=== PATIENT | female | born 1965 | race Caucasian/White ===

== ENCOUNTER 2021-08-22 15:52 | Outpatient (REF) | payer OTHER, SELFPAY ==
--- NOTE | 2021-08-22 17:39 | PFT_ITS ---
Forced vital capacity is 80%, FEV1 85%. FEV1/FVC ratio 83. [id number] 96% and MVV is 99%. Post bronchodilator therapy, there is no change. Total lung capacity 85%. Residual volume 79%. Diffusion capacity 72%. Conclusion normal pulmonary function test. There is no evidence of obstructive or restrictive pulmonary disorder. MD WON Leblanc/JARED / [id number]
== END 2021-08-22 15:53 | disposition home or self-care (01) ==
LOC: HO.RESP 15:52
PROVIDERS: PCP Internal Medicine; Visit Provider Hospitalist
DX: J45.909 Unspecified asthma, uncomplicated (principal); R06.00 Dyspnea, unspecified
CPT/HCPCS: 94060; 94727; 94729

== ENCOUNTER → 2022-03-21 14:24 | Outpatient (BNVA) | payer OTHER, SELFPAY | PROVIDERS: PCP Internal Medicine; Visit Provider Hospitalist | DX: J45.20 Mild intermittent asthma, uncomplicated (principal) ==

== ENCOUNTER 2022-09-23 15:01 | Outpatient (AMB) | payer OTHER, SELFPAY ==
--- NOTE | 2022-09-23 15:21 | MHC.OFFVIS ---
Intake Vital Signs 09/23/22 15:22 Height 5 ft 7 in Weight 245 lb BMI 38.4 Pulse 86 Pulse Source Pulse Oximeter Pulse Oximetry (%) 98 Oxygen Delivery Method Room Air Intake Visit Reasons: Sleep Apnea Field Account Director Required: No Allergies Sulfa (Sulfonamide Antibiotics) Allergy (Severe, Verified 09/23/22 15:24) Swelling HPI HPI Comments History of Present Illness Details The patient is a 57-year-old woman with a known history of obstructive sleep apnea on CPAP therapy for many years. In addition to that she has a history of diabetes. Apparently she has been on CPAP therapy for and tolerating it very well. She uses it more than 4 hours a night. Typically uses a nasal mask. However, she still wakes up with significant daytime drowsiness. Sometimes she does fall asleep during business meetings or if she is on a red light. Her Chester score is elevated at 14 over 24. and she has had this issue now for many years. back in 2015 she did have an in-lab sleep study and CPAP and subsequently had multi latency sleep study subsequent to that. It appeared that her Pap therapy was affecting beneficial addressing her sleep apnea. Although, she still had evidence of hypersomnia once performing the MSLT. 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 The patient has not been treated for this condition. She continues to struggle with it. Therefore, I did suggest the patient consider starting new visual. She is concerned about any new medications because she is very sensitive to medications. But she can start the smallest dose possible to see if she does improve her overall Chester score And daytime drowsiness. the patient also carries a diagnosis of asthma. She has complained of intermittent shortness of breath. The patient does have a rescue inhaler available. Will plan to follow-up with pulmonary function studies. 09/23/2021 the patient is here for a pulmonary follow-up visit. Overall the patient is doing about the same. She is still waiting for the new CPAP. We did submit all the paperwork to the local [employer] company. Due to the back order is taking longer period time. In the meantime the CPAP therapy is affecting beneficial for the patient. She does try to use it more than 4 hours a night. She was given a prescription for new visual for persistent hypersomnia even with effective treatment with CPAP. However, the medication was also on back order she only got a recently. Now she is going to have surgery and therefore she is going to hold off to after she recovers from her surgery to start taking the medication. I do believe this is the right approach. We did review her pulmonary function studies. Appears to have a mild diffusion impairment but otherwise no obstructive nor restrictive ventilatory defects. 03/21/2022 The patient is here for a pulmonary follow up visit. She did take the Nuvigil and did improve her drowsiness, but caused her diarrhea and she stopped it. She now is recovering after having covid. Having a hard time sleeping. Has been having headaches and elevated BPs. Has been using her APAP. Her AHI is good, 1-2. Her pressures are good. The APAP therapy has been effective and beneficial. We will try to help her with her insomnia with the hopes that her HAs and BP improve. 09/23/2022 the patient is here for pulmonary follow-up visit. She has been sick now for several weeks with a upper respiratory illness that resulted in significant bronchitis and wheezing. She did go to urgent care. there, they sent her a prescription for budesonide which she start using along with Xopenex. She tolerated therapy well though she noticed some increased dyspepsia and also significant muscle spasms that was likely from the nebulized therapy. The patient did not require antibiotics. She did improve and over the weekend she is now back to her baseline. Her sister was also 6 suggesting that it was a lower respiratory infection likely viral syndrome. In regards of the CPAP the CPAP therapy continues to be affecting beneficial. She does use it for more than 4 hours a night. The patient was reported to have some snoring on the current settings. Therefore, I did increase the pressure some to see if that would improve her response to therapy. Although her AHI is down to 1 suggesting that even if she has some minimal snoring it is likely seldom. [facility] Medical History (Updated 03/23/22 @ 22:20 by Tariq Gilliland MD) Asthma Hypersomnia with sleep apnea JUSTICE on CPAP Social History (Updated 07/19/21 @ 15:45 by ALEJA Zepeda) Patient Tobacco Use Status: Never used Tobacco Review of Systems Const Reports daytime sleepiness, Reports difficulty sleeping and Reports headache(s) Eyes Denies change in vision ENT Reports headache(s) Card Denies chest pain Resp Reports cough GI Reports heartburn Musc Reports no additional complaints Skin/Breast Denies rash Neuro Reports headache(s) Physical Exam Vital Signs: Last Vital Signs Pulse 86 09/23/22 15:22 Pulse Ox 98 09/23/22 15:22 Oxygen Delivery Method Room Air 09/23/22 15:22 BMI result Body Mass Index 38.4 Const General: alert HEENT Head: Yes normal to inspection Neck Neck: Yes normal visual inspection and Yes full ROM Chest Chest palpation & inspection: normal inspection of the chest Resp Effort & Inspection: normal respiratory effort Auscultation: diminished lung sounds Cardio Rate: regular rate Rhythm: regular rhythm Heart sounds: S1 normal heart sound present and S2 normal heart sound present GI Inspection: Yes normal to inspection Skin General skin exam: no rashes or lesions noted Extrem General: Yes no clubbing, cyanosis or edema Assessment & Plan Assessment & Plan (1) JUSTICE on CPAP: Code(s): G47.33 - Obstructive sleep apnea (adult) (pediatric); Z99.89 - Dependence on other enabling machines and devices (2) Hypersomnia with sleep apnea: Code(s): G47.10 - Hypersomnia, unspecified; G47.30 - Sleep apnea, unspecified (3) Asthma: Code(s): J45.909 - Unspecified asthma, uncomplicated Qualifiers: Asthma complication type: uncomplicated Asthma persistence: intermittent Asthma severity: mild Qualified Code(s): J45.20 - Mild intermittent asthma, uncomplicated (4) Insomnia: Code(s): G47.00 - Insomnia, unspecified Plan Continue APAP. Nasal mask N20 medium provided. Xopenex via nebulizer as needed hold off on BUdesonide at this time potassium rich foods while using beta agonist continue KATHY as needed CXR Ambien as needed F/U 3-4 months Orders: Orders XR chest 2V Today J45.909 - Unspecified asthma, uncomplicated Medications: New levalbuterol HCl 1.25 mg (3 mL) inhalation BID 30 days PRN 180 mL 0RF shortness of breath or wheezing J44.9 - Chronic obstructive pulmonary disease, unspecified Coding Level of Care Code Est Pt Level 4 (38774) Diagnoses JUSTICE on CPAP G47.33; Z99.89 Hypersomnia with sleep apnea G47.10; G47.30 Asthma J45.20 Asthma complication type: uncomplicated Asthma persistence: intermittent Asthma severity: mild Insomnia G47.00 Time Spent (min) 18
[2022-09-23 15:22] VITALS: PULSE 86; O2SAT 98; BMI 38.4
== END 2022-09-23 15:49 | disposition home or self-care (01) ==
PROVIDERS: PCP Internal Medicine; Visit Provider Hospitalist
DX: G47.33 Obstructive sleep apnea (adult) (pediatric) (principal); Z99.89 Dependence on other enabling machines and devices; G47.10 Hypersomnia, unspecified; G47.30 Sleep apnea, unspecified; J45.20 Mild intermittent asthma, uncomplicated; G47.00 Insomnia, unspecified
CPT/HCPCS: 99214

== ENCOUNTER → 2022-09-23 15:01 | Outpatient (BNVA) | payer OTHER, SELFPAY | PROVIDERS: PCP Internal Medicine; Visit Provider Hospitalist | DX: J45.20 Mild intermittent asthma, uncomplicated (principal) ==

== ENCOUNTER 2023-05-19 15:34 | Outpatient (AMB) | payer OTHER, SELFPAY ==
--- NOTE | 2023-05-19 15:36 | MHC.OFFVIS ---
Intake Vital Signs 05/19/23 15:37 Height 5 ft 7 in Weight 248 lb BMI 38.8 Pulse 90 Pulse Source Pulse Oximeter Pulse Oximetry (%) 97 Oxygen Delivery Method Room Air Intake Visit Reasons: Sleep Apnea Board Certified Orthodontist Required: No Allergies Sulfa (Sulfonamide Antibiotics) Allergy (Severe, Verified 05/19/23 15:38) Swelling HPI HPI Comments History of Present Illness Details The patient is a 58-year-old woman with a known history of obstructive sleep apnea on CPAP therapy for many years. In addition to that she has a history of diabetes. Apparently she has been on CPAP therapy for and tolerating it very well. She uses it more than 4 hours a night. Typically uses a nasal mask. However, she still wakes up with significant daytime drowsiness. Sometimes she does fall asleep during business meetings or if she is on a red light. Her Richmond score is elevated at 14 over 24. and she has had this issue now for many years. back in 2015 she did have an in-lab sleep study and CPAP and subsequently had multi latency sleep study subsequent to that. It appeared that her Pap therapy was affecting beneficial addressing her sleep apnea. Although, she still had evidence of hypersomnia once performing the MSLT. 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 The patient has not been treated for this condition. She continues to struggle with it. Therefore, I did suggest the patient consider starting new visual. She is concerned about any new medications because she is very sensitive to medications. But she can start the smallest dose possible to see if she does improve her overall Richmond score And daytime drowsiness. the patient also carries a diagnosis of asthma. She has complained of intermittent shortness of breath. The patient does have a rescue inhaler available. Will plan to follow-up with pulmonary function studies. 09/23/2021 the patient is here for a pulmonary follow-up visit. Overall the patient is doing about the same. She is still waiting for the new CPAP. We did submit all the paperwork to the local [employer] company. Due to the back order is taking longer period time. In the meantime the CPAP therapy is affecting beneficial for the patient. She does try to use it more than 4 hours a night. She was given a prescription for new visual for persistent hypersomnia even with effective treatment with CPAP. However, the medication was also on back order she only got a recently. Now she is going to have surgery and therefore she is going to hold off to after she recovers from her surgery to start taking the medication. I do believe this is the right approach. We did review her pulmonary function studies. Appears to have a mild diffusion impairment but otherwise no obstructive nor restrictive ventilatory defects. 03/21/2022 The patient is here for a pulmonary follow up visit. She did take the Nuvigil and did improve her drowsiness, but caused her diarrhea and she stopped it. She now is recovering after having covid. Having a hard time sleeping. Has been having headaches and elevated BPs. Has been using her APAP. Her AHI is good, 1-2. Her pressures are good. The APAP therapy has been effective and beneficial. We will try to help her with her insomnia with the hopes that her HAs and BP improve. 09/23/2022 the patient is here for pulmonary follow-up visit. She has been sick now for several weeks with a upper respiratory illness that resulted in significant bronchitis and wheezing. She did go to urgent care. there, they sent her a prescription for budesonide which she start using along with Xopenex. She tolerated therapy well though she noticed some increased dyspepsia and also significant muscle spasms that was likely from the nebulized therapy. The patient did not require antibiotics. She did improve and over the weekend she is now back to her baseline. Her sister was also 6 suggesting that it was a lower respiratory infection likely viral syndrome. In regards of the CPAP the CPAP therapy continues to be affecting beneficial. She does use it for more than 4 hours a night. The patient was reported to have some snoring on the current settings. Therefore, I did increase the pressure some to see if that would improve her response to therapy. Although her AHI is down to 1 suggesting that even if she has some minimal snoring it is likely seldom. 05/19/2023 the patient is here for a pulmonary follow-up visit. Overall she is doing well. The CPAP therapy continues to be affecting beneficial. She does use it for more than 4 hours a night. Does use a nasal mask. No significant air leakage. Unfortunately, it appears that her current APAP is not downloading current data. She does not have the machine with her. I did call her [employer] to see if I can get access to her new machine. She states that she is snoring while using machine. This was documented by her family. Therefore, should be increasing her pressure some. In addition to that her asthma seems to be in control. She does have a rescue inhaler as needed. She has not had to use it which is reassuring. The patient was having some persistent daytime drowsiness even with adequate CPAP therapy. We did try putting her individual but she did not tolerated. It actually resulted in adverse symptoms and therefore she stopped it. She also tried sleep aids to see if she can have a better night's sleep but she did not tolerate the cedars. She is pretty sensitive to medications. However, she is willing to try some melatonin. I think to be a safe option for her. Hopefully we can provide her with a deeper sleep with better sleep hygiene and therefore hopefully feel better in the morning. [facility] Medical History (Updated 05/19/23 @ 22:42 by Tariq Gilliland MD) Hypersomnia with sleep apnea JUSTICE on CPAP Asthma Social History (Updated 07/19/21 @ 15:45 by ALEJA Zepeda) Patient Tobacco Use Status: Never used Tobacco Review of Systems Const Reports daytime sleepiness, Reports difficulty sleeping and Reports headache(s) Eyes Denies change in vision ENT Reports headache(s) Card Denies chest pain Resp Reports cough GI Reports heartburn Musc Reports no additional complaints Skin/Breast Denies rash Neuro Reports headache(s) Physical Exam Vital Signs: Last Vital Signs Pulse 90 05/19/23 15:37 Pulse Ox 97 05/19/23 15:37 Oxygen Delivery Method Room Air 05/19/23 15:37 BMI result Body Mass Index 38.8 Const General: alert HEENT Head: Yes normal to inspection Neck Neck: Yes normal visual inspection and Yes full ROM Chest Chest palpation & inspection: normal inspection of the chest Resp Effort & Inspection: normal respiratory effort Auscultation: diminished lung sounds Cardio Rate: regular rate Rhythm: regular rhythm Heart sounds: S1 normal heart sound present and S2 normal heart sound present GI Inspection: Yes normal to inspection Skin General skin exam: no rashes or lesions noted Extrem General: Yes no clubbing, cyanosis or edema Assessment & Plan Assessment & Plan (1) JUSTICE on CPAP: Code(s): G47.33 - Obstructive sleep apnea (adult) (pediatric); Z99.89 - Dependence on other enabling machines and devices (2) Hypersomnia with sleep apnea: Code(s): G47.10 - Hypersomnia, unspecified; G47.30 - Sleep apnea, unspecified (3) Asthma: Code(s): J45.909 - Unspecified asthma, uncomplicated Qualifiers: Asthma complication type: uncomplicated Asthma persistence: intermittent Asthma severity: mild Qualified Code(s): J45.20 - Mild intermittent asthma, uncomplicated (4) Insomnia: Code(s): G47.00 - Insomnia, unspecified Qualifiers: Insomnia type: primary Qualified Code(s): F51.01 - Primary insomnia Plan Continue APAP. Nasal mask N20 medium provided. [employer] access/download to adjust the APAP Xopenex via nebulizer as needed continue KATHY as needed Stop Ambien Start Melatonin PM F/U 12 months Medications: New melatonin 5 mg PO BEDTIME PRN 30 tabs 6RF sleep 30 days furosemide (Lasix) 20 mg PO DAILY 3 tabs 0RF 3 days Coding Level of Care Code Est Pt Level 4 (90400) Diagnoses JUSTICE on CPAP G47.33; Z99.89 Hypersomnia with sleep apnea G47.10; G47.30 Mild intermittent asthma without complication J45.20 Asthma complication type: uncomplicated Asthma persistence: intermittent Asthma severity: mild Primary insomnia F51.01 Insomnia type: primary Time Spent (min) 17
[2023-05-19 15:37] VITALS: PULSE 90; O2SAT 97; BMI 38.8
== END 2023-05-19 16:07 | disposition home or self-care (01) ==
PROVIDERS: PCP Internal Medicine; Visit Provider Hospitalist
DX: G47.33 Obstructive sleep apnea (adult) (pediatric) (principal); Z99.89 Dependence on other enabling machines and devices; G47.10 Hypersomnia, unspecified; G47.30 Sleep apnea, unspecified; J45.20 Mild intermittent asthma, uncomplicated; F51.01 Primary insomnia
CPT/HCPCS: 99214

== ENCOUNTER → 2023-05-19 15:34 | Outpatient (BNVA) | payer OTHER, SELFPAY | PROVIDERS: PCP Internal Medicine; Visit Provider Hospitalist | DX: J45.20 Mild intermittent asthma, uncomplicated (principal); J44.9 Chronic obstructive pulmonary disease, unspecified; J45.909 Unspecified asthma, uncomplicated ==

== ENCOUNTER 2024-06-03 10:11 | Outpatient (AMB) | payer OTHER, SELFPAY ==
[2024-06-03 10:13] VITALS: BP 134/76; PULSE 92; O2SAT 97; BMI 39.2
--- NOTE | 2024-06-03 10:13 | A.OFFVIS_ITS ---
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 In addition to that she has a history of diabetes. Apparently she has been on CPAP therapy for and tolerating it very well. She uses it more than 4 hours a night. Typically uses a nasal mask. However, she still wakes up with significant daytime drowsiness. Sometimes she does fall asleep during business meetings or if she is on a red light. Her Bellevue score is elevated at 14 over 24. and she has had this issue now for many years. back in 2015 she did have an in-lab sleep study and CPAP and john rivera had multi latency sleep study subsequent to that. It appeared that her Pap therapy was affecting beneficial addressing her sleep apnea. Although, she still had evidence of hypersomnia once performing the MSLT. 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 The patient has not been treated for this condition. She continues to struggle with it. Therefore, I did suggest the patient consider starting new visual. She is concerned about any new medications because she is very sensitive to medications. But she can start the smallest dose possible to see if she does improve her overall Bellevue score And daytime drowsiness. the patient also carries a diagnosis of asthma. She has complained of intermittent shortness of breath. The patient does have a rescue inhaler available. Will plan to follow- up with pulmonary function studies. 09/23/2021 the patient is here for a pulmonary follow-up visit. Overall the patient is doing about the same. She is still waiting for the new CPAP. We did submit all the paperwork to the local [employer] company. Due to the back order is taking longer period time. In the meantime the CPAP therapy is affecting beneficial for the patient. She does try to use it more than 4 hours a night. She was given a prescription for new visual for persistent hypersomnia even with effective treatment with CPAP. However, the medication was also on back order she only got a recently. Now she is going to have surgery and therefore s he is going to hold off to after she recovers from her surgery to start taking the medication. I do believe this is the right approach. We did review her pulmonary function studies. Appears to have a mild diffusion impairment but otherwise no obstructive nor restrictive ventilatory defects. 03/21/2022 The patient is here for a pulmonary follow up visit. She did take the Nuvigil and did improve her drowsiness, but caused her diarrhea and she stopped it. She now is recovering after having covid. Having a hard time sleeping. Has been having headaches and elevated BPs. Has been using her APAP. Her AHI is good, 1-2. Her pressures are good. The APAP therapy has been effective and beneficial. We will try to help her with her insomnia with the hopes that her HAs and BP improve. 09/23/2022 the patient is here for pulmonary follow-up visit. She has been sick now for several weeks with a upper respiratory illness that resulted in significant bronchitis and wheezing. She did go to urgent care. there, they sent her a prescription for budesonide which she start using along with Xopenex. She tolerated therapy well though she noticed some increased dyspepsia and also significant muscle spasms that was likely from the nebulized therapy. The patient did not require antibiotics. She did improve and over the weekend she is now back to her baseline. Her sister was also 6 suggesting that it was a lower respiratory infection likely viral syndrome. In regards of the CPAP the CPAP therapy continues to be affecting beneficial. She does use it for more than 4 hours a night. The patient was reported to have some snoring on the current settings. Therefore, I did increase the pressure some to see if that would improve her response to therapy. Although her AHI is down to 1 suggesting that even if she has some minimal snoring it is likely seldom. 05/19/2023 the patient is here for a pulmonary follow-up visit. Overall she is doing well. The CPAP therapy continues to be affecting beneficial. She does use it for more than 4 hours a night. Does use a nasal mask. No significant air leakage. Unfortunately, it appears that her current APAP is not downloading current data. She does not have the machine with her. I did call her [employer] company to see if I can get access to her new machine. She states that she is snoring while using machine. This was documented by her family. Therefore, should be increasing her pressure some. In addition to that her asthma seems to be in control. She does have a rescue inhaler as needed. She has not had to use it which is reassuring. The patient was having some persistent daytime drowsiness even with adequate CPAP therapy. We did try putting her individual but she did not tolerated. It actually resulted in adverse symptoms and therefore she stopped it. She also tried sleep aids to see if she can have a better night's sleep but she did not tolerate the cedars. She is pretty sensitive to medications. However, she is willing to try some melatonin. I think to be a safe option for her. Hopefully we can provide her with a deeper sleep with better sleep hygiene and therefore hopefully feel better in the morning. 06/03/2024 the patient is here for pulmonary follow-up visit. Overall she is doing well. She continues uses CPAP every night. CPAP therapy has been affecting beneficial. She does try to use it more than 4 hours a night. Her AHI is down to 1. Average pressures are around 11 cm. She does have issues with fragmented sleep. She wakes up multiple times. She also has a dry mouth. I did adjust the temperature bringing down her temperature from 80 F to 70 F and also the humidity from 3-4. She is going to monitor closely if she has any dry mouth that may be waking her up. She can also try some Biotene as the dentist recommended. The patient also can try sleep aid. Trazodone will be more effective for her to try to stay asleep. She can start with small dose of 25 mg and then workup to a therapeutic dose that does not cause any significant drowsiness during the daytime. From a respiratory status she is doing well. She has not had to use her rescue inhaler. [facility] Medical History (Updated 05/19/23 @ 22:42 by Tariq Gilliland MD) Hypersomnia with sleep apnea JUSTICE on CPAP Asthma Social History (Updated 06/03/24 @ 10:18 by Pippa Dexter CMA) Alcohol intake: former Patient Tobacco Use Status: Never used Tobacco Review of Systems Const Denies chills, Denies fatigue, Denies fever(s), Denies weight gain and Denies weight loss Eyes Denies change in vision ENT Denies dizziness Card Denies chest pain, Denies leg edema, Denies lightheadedness, Denies palpitations, Denies dyspnea on exertion, Denies orthopnea and Denies other Resp Denies cough and Denies dyspnea on exertion GI Denies hematochezia and Denies change in stool character Musc Denies abnormal gait, Denies muscle weakness, Denies numbness, Denies radiating pain into limb and Denies tingling Skin/Breast Denies rash Neuro Denies abnormal gait, Denies dizziness, Denies numbness and Denies tingling Endo Denies fatigue and Denies palpitations Physical Exam Vital Signs: Last Vital Signs Pulse 92 06/03/24 10:13 BP 134/76 06/03/24 10:13 Pulse Ox 97 06/03/24 10:13 Oxygen Delivery Method Room Air 06/03/24 10:13 BMI result Body Mass Index 39.2 Const General: alert HEENT Head: Yes normal to inspection Neck Neck: Yes normal visual inspection and Yes full ROM Chest Chest palpation & inspection: normal inspection of the chest Resp Effort & Inspection: normal respiratory effort Auscultation: diminished lung sounds Cardio Rate: regular rate Rhythm: regular rhythm Heart sounds: S1 normal heart sound present and S2 normal heart sound present GI Inspection: Yes normal to inspection Skin General skin exam: no rashes or lesions noted Extrem General: Yes no clubbing, cyanosis or edema Assessment & Plan Assessment & Plan (1) JUSTICE on CPAP: Code(s): G47.33 - Obstructive sleep apnea (adult) (pediatric); Z99.89 - Dependence on other enabling machines and devices Category: Medical (2) Hypersomnia with sleep apnea: Code(s): G47.10 - Hypersomnia, unspecified; G47.30 - Sleep apnea, unspecified Category: Medical (3) Asthma: Code(s): J45.909 - Unspecified asthma, uncomplicated Category: Medical Qualifiers: Asthma complication type: uncomplicated Asthma persistence: intermittent Asthma severity: mild Qualified Code(s): J45.20 - Mild intermittent asthma, uncomplicated (4) Insomnia: Code(s): G47.00 - Insomnia, unspecified Category: Medical Qualifiers: Insomnia type: primary Qualified Code(s): F51.01 - Primary insomnia Plan Continue APAP. Nasal mask N20 medium provided. Xopenex via nebulizer as needed continue KATHY as needed start Trazodone as needed F/U 12 months Medications: New trazodone 50 mg PO DAILY PRN 30 tabs 6RF insomnia 30 days Coding Level of Care Code Est Pt Level 4 (37318) Diagnoses JUSTICE on CPAP G47.33; Z99.89 Hypersomnia with sleep apnea G47.10; G47.30 Mild intermittent asthma without complication J45.20 Asthma complication type: uncomplicated Asthma persistence: intermittent Asthma severity: mild Primary insomnia F51.01 Insomnia type: primary Time Spent (min) 16
--- OUTSIDE RECORDS SUMMARY | 2024-06-03 10:37 | XMS_ITS | Clinical Summary ---
Author Organization [facility] Address [address] [place] [address] Care Team Providers Care Local Flatbed Driver Name Role Phone Cheikh Singh MD Primary Care Provider Social History Tobacco Use Types Packs/Day Years Used Date Smoking Tobacco: Never Assessed Comments Unknown Sex and Gender Information Value Date Recorded Sex Assigned at Not on file Legal Sex Female 9:22 PM EST Gender Identity Not on file Sexual Orientation Not on file Obstetrics History Plan of Treatment Health Maintenance Due Date Last Done Comments Breast Cancer Screening 1966 DTaP,Tdap,and Td Vaccines (1 - Tdap) 1985 Hepatitis B Vaccines (1 of 3 - 19+ 3-dose series) 1985 Cervical Cancer Screening: P ap Smear 1987 Pneumococcal Vaccine: 50+ Ye ars (1 of 1 - PCV) 2016 Zoster Vaccines (1 of 2) 2016 Colorectal Cancer Screening: Colonoscopy 01/11/2022 Depression Screening 01/11/2022 HIV Screening 01/11/2022 Hepatitis C Screening 01/11/2022 Social Influencers of Health Screening 01/11/2022 COVID-19 Vaccine (2023-2 5 season) 2023 Influenza Vaccine (Season Ended) 2024 HIB Vaccines Aged Out No longer eligi ble based on patient's age to complete this topic HPV Vaccines Aged Out No longer eligi ble based on patient's age to complete this topic Hepatitis A Vaccines Aged Out No long er eligible based on patient's age to complete this topic IPV Vaccines Aged Out No longer eligi ble based on patient's age to complete this topic MMR Vaccines Aged Out No longer eligi ble based on patient's age to complete this topic Meningococcal ACWY Vaccine Aged Out N o longer eligible based on patient's age to complete this topic Meningococcal B Vaccine Aged Out No l onger eligible based on patient's age to complete this topic Pneumococcal Vaccine: Pediat rics (0 to 5 Years) and At-Risk Patients (6 to 64 Years) Aged Out No longer eligible b ased on patient's age to complete this topic RSV Immunization Patients Un minda 20 months Aged Out No longer eligible b ased on patient's age to complete this topic Varicella Vaccines Aged Out No longer eligible based on patient's age to complete this topic Care Teams Local Flatbed Driver Relationship Specialty Start Date End Date Cheikh Singh MD [address] [place] [address] PCP - General Internal Medicine 12/26/16
--- OUTSIDE RECORDS SUMMARY | 2024-06-03 10:37 | XMS_ITS ---
[facility] Name [facility] History of Medication Use Medication Directions Dispensed Refills Start Date End Date Stat us betamethasone acetate-betamethason e sodium phosphate (CELESTONE) injection 12 mg 12 mg, Intra-articular, Once PRN Procedure, Starting on Thu12/04/23 at 1415, For 1 dose 12/04/2023 12/04/2023 completed predniSONE (DELTASONE) 20 MG tablet Take 2 tablets (40 mg total) by mouth daily. 12/26/2022 01/01/2023 active levothyroxine (SYNTHROID, LEVOTHROID) 137 MCG tablet Take 137 mcg by mouth daily. 12/08/2022 active Toujeo Max SoloStar 300 UNIT/ML CONCENTRATED prefilled pen injection INJECT 150 UNITS UNDER THE SKIN EVERY DAY 12/01/2022 active BD Pen Needle Kaleigh 2nd Gen 32G X 4 MM Misc USE 6 TIMES EVERY DAY DIRECTED 10/30/2022 active scopolamine (TRANSDERM-SCOP) patch APPLY 1 PATCH TOPICALLY TO THE SKIN EVERY 72 HOURS 10/30/2022 active nystatin 298488 UNIT/GM powder APPLY TOPICALLY THREE TIMES DAILY 09/26/2022 active ergocalciferol (VITAMIN D2,DRISDOL) 14948 units Cap Take 50,000 Units by mouth. active Problems Problem Status Onset Date Problem Type Date of Resolution Source Patellofemoral arthritis of right knee active [facility]osis[facility] Patellofemoral arthritis of left knee active EncounterDiagnosis[facility] Acute medial meniscus tear of left knee, initial encounter active EncounterDiagnosisAct [facility] Effusion of joint of left knee active 2023-10-20 ProblemAct [facility] Pain of left knee region active 2023-10-20 ProblemAct [facility] Arthritis of knee active 2023-09-29 ProblemAct [facility] Sprain of medial collateral ligament of right knee joint active 2023-09-[address] [facility] [address] Encounters Encounter Type Encounter Reason Primary Diagnosis Location Date Ambulatory Pain [facility] 12/04/2023 Ambulatory [facility] [place] 11/05/2023 Ambulatory [facility] [place] 10/21/2023 Ambulatory [facility] [place] 09/30/2023 Ambulatory [facility] [place] 09/29/2023 Ambulatory [facility] [place] 09/29/2023 Ambulatory [facility] [place] 09/29/2023 Ambulatory [facility] [place] 09/29/2023 Ambulatory [facility] [place] 09/29/2023 Ambulatory [facility] 12/30/2022 Ambulatory Bronchitis, not specified as acute or chronic Bronchitis, not specified as acute or chronic [facility] 12/30/2022 Ambulatory Bronchitis, not specified as acute or chronic Bronchitis, not specified as acute or chronic [facility] 12/26/2022 Care Team Organization Name Specialty Phone Email Start Date End Da te [facility] 03/01/2023 [facility] 12/30/20222022 [facility] Primary [facility] 12/26/20222024
--- OUTSIDE RECORDS SUMMARY | 2024-06-03 10:37 | XMS_ITS | Encounter Summary ---
Author Organization [facility] Address [address] [place] [address] Care Team Providers Care Air Launch Weapons Technician Name Role Phone Cheikh Singh MD Primary Care Provider [phone] Encounter Details Date Type Department Care Team (Late st Contact Info) Description 10/01/2021 Erroneous Encounter [facility] [address] [place] [id number] Provider, MD Elena Social History Tobacco Use Types Packs/Day Years Used Date Smoking Tobacco: Never Assessed Comments Unknown Sex and Gender Information Value Date Recorded Sex Assigned at Female 11/02/2023 7:52 PM EDT Legal Sex Female 7:00 PM EST Gender Identity Female 11/02/2023 7:52 PM EDT Sexual Orientation Not on file documented as of this encounter Plan of Treatment Not on file documented as of this encounter Visit Diagnoses Not on filedocumented in this encounter Care Teams Air Launch Weapons Technician Relationship Specialty Start Date End Date Cheikh Singh MD [address] [place] [address] PCP - General Internal Medicine 12/26/22 documented as of this encounter
--- OUTSIDE RECORDS SUMMARY | 2024-06-03 10:37 | XMS_ITS | Clinical Summary ---
Author Organization [facility] Address [address] [place] [address] Care Team Providers Care Vp Treasurer Name Role Phone Cheikh Singh MD Primary Care Provider [phone] Allergies Active Allergy Reactions Criticality Noted Date Comments Latex Other (See Comments) 12/26/2022 Sulfa Antibiotics Other (See Comments),Itching,Swelling Medium 12/26/2022 Medications ergocalciferol (VITAMIN D2,DRISDOL) 66575 units Cap Take 50,000 Units by mouth. Active ezetimibe (ZeTIA) 10 MG tablet TAKE 1 TABLET BY MOUTH DAILY IN THE am 3 Active Toujeo Max SoloStar 300 UNIT/ML CONCENTRATED prefilled pen injection INJECT 150 UNITS UNDER THE SKIN EVERY DAY 3 Active HumaLOG KwikPen 200 UNIT/ML CONCENTRATED prefilled pen injection INJECT 30-50 UNITS UNDER THE SKIN THREE TIMES DAILY WITH MEALS AND INJECT 15-20 UNITS WITH SNACKS 3 Active BD Pen Needle Kaleigh 2nd Gen 32G X 4 MM Misc USE 6 TIMES EVERY DAY DIRECTED 3 Active levothyroxine (SYNTHROID, LEVOTHROID) 137 MCG tablet Take 137 mcg by mouth daily. 3 Active losartan (COZAAR) 25 MG tablet Take 25 mg by mouth daily. 3 Active nortriptyline (PAMELOR) 25 MG capsule TAKE 1 CAPSULE BY MOUTH ONCE DAILY AT BEDTIME 3 Active nystatin 390865 UNIT/GM powder APPLY TOPICALLY THREE TIMES DAILY 3 Active OMEprazole (PriLOSEC) 40 MG capsule Take 40 mg by mouth 2 (two) times a day. 3 Active PANTETHINE ER PO Take by mouth. Active scopolamine (TRANSDERM-SCOP) patch APPLY 1 PATCH TOPICALLY TO THE SKIN EVERY 72 HOURS 3 Active metFORMIN (GLUCOPHAGE) 500 MG tablet Take 750 mg by mouth 2 (two) times a day with meals. Active proMETHAZINE-dex tromethorphan (proMETHAZINE-DM ) 6.25-15 MG/5ML syrupIndications :Bronchitis Take 5 mL by mouth every 4 (four) hours as needed for cough. 120 mL 3 Active benzonatate (TESSALON) 100 MG capsuleIndicatio ns:Bronchitis Take 2 capsules (200 mg total) by mouth 3 (three) times a day as needed for cough. 20 capsule 3 Active predniSONE (DELTASONE) 20 MG tabletIndication s:Bronchitis Take 2 tablets (40 mg total) by mouth daily. 10 tablet 3 Active albuterol (PROVENTIL) (0.083%) 2.5 mg/3 mL nebulizer solutionIndicati ons:Bronchitis Take 3 mL (2.5 mg total) by nebulization 4 times daily (every 6 hours) as needed for wheezing or shortness of breath. 75 mL 3 Active Active Problems No known active problems Social History Tobacco Use Types Packs/Day Years Used Date Smoking Tobacco: Never Assessed Comments Unknown Sex and Gender Information Value Date Recorded Sex Assigned at Female 11/02/2023 7:52 PM EDT Legal Sex Female 7:00 PM EST Gender Identity Female 11/02/2023 7:52 PM EDT Sexual Orientation Not on file Last Filed Vital Signs Vital Sign Reading Time Taken Comments Blood Pressure 136/80 12/30/2022 6:46 PM EST Pulse 82 12/30/2022 6:46 PM EST Temperature 36.3 ??C (97.3 ??F) 12/30/2022 6:46 PM ES T Respiratory Rate - - Oxygen Saturation 98% 12/30/2022 6:46 PM EST Inhaled Oxygen Concentration - - Weight - - Height - - Body Mass Index - - Plan of Treatment Health Maintenance Due Date Last Done Comments Hepatitis C Virus Screening 1966 HIV Screening 1979 DTaP/Tdap/Td Vaccines (1 - Tdap) 1985 Hepatitis B Vaccines (1 of 3 - 19+ 3-dose series) 1985 Pap Smear (Ages 21-65) 1987 Mammogram 2006 Colonoscopy 2011 Pneumococcal Vaccines 50+ (1 of 1 - PCV) 2016 Zoster (Shingles) Vaccine (1 of 2) 2016 Influenza Vaccine 09/10/2023 12/09/2021, , 12/29/2019, Additional history exists COVID-19 Vaccine (2023-2 5 season) 2023 10/26/2022, 05/10/2021, 12/21/2020, Additional history exists Insurance [facility] Care Teams Vp Treasurer Relationship Specialty Start Date End Date Cheikh Singh MD [address] [place] [id number] PCP - General Internal Medicine 12/26/22
--- OUTSIDE RECORDS SUMMARY | 2024-06-03 10:37 | XMS_ITS | Encounter Summary ---
Author Organization [facility] Address [address] [place] [address] Care Team Providers Care Rip/Mould Operator Name Role Phone Cheikh Singh MD Primary Care Provider [phone] Encounter Details Date Type Department Care Team ([facility] st Contact Info) Description 12/30/2022 7:02 PM EST Hospital Encounter [facility] [address] [place] [id number] Social History Tobacco Use Types Packs/Day Years [...] on file documented as of this encounter Procedures Procedure Name Priority Date/Time Associated Diagnosis Comments XR CHEST 2 VIEWS STAT 12/30/2022 7:07 PM EST Bronchitis documented in this encounter Results * XR Chest 2 views (12/30/2022 7:07 PM EST) Anatomical Region Laterality Modality Chest Computed Radiogr aphy 12/30/2022 7:09 PM EST Impressions 12/30/2022 7:10 PM EST Normal examination. Narrative 12/30/2022 7:10 PM EST PROCEDURE: XR CHEST 2 VIEWS INDICATION: Cough COMPARISON: None. TECHNIQUE: PA and lateral views of the chest. FINDINGS: Lines and Tubes: None. Heart and Mediastinum: The heart and mediastinal contours are unremarkable. Lungs and Pleura: The lungs are clear. ??There are no pleural effusions. Skeletal structures: The bony structures are unremarkable. Procedure Note Segundo Lennon MD - 12/30/2022 PROCEDURE: XR CHEST 2 VIEWS INDICATION: Cough COMPARISON: None. TECHNIQUE: PA and lateral views of the chest. FINDINGS: Lines and Tubes: None. Heart and Mediastinum: The heart and mediastinal contours areunremarkable. Lungs and Pleura: The lungs are clear. There are no pleural effusions. Skeletal structures: The bony structures are unremarkable. IMPRESSION: Normal examination. Mayank NUR IMG DIAGNOSTIC IMAGING ORDERAB LES Final Result documented in this encounter Visit Diagnoses Not on filedocumented in this encounter Care Teams Rip/Mould Operator Relationship Specialty Start Date End Date Cheikh Singh MD [address] [place] [address] PCP - General Internal Medicine 12/26/22 documented as of this encounter
--- OUTSIDE RECORDS SUMMARY | 2024-06-03 10:38 | XMS_ITS | Data Portability ---
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 - A1c not at goal. 03/30- Humalog was added (dinner only initially). 2020- Using breakfast and lunch. 04/02: toujeo 124. CGM shows highs post-lunch and (moreso) post-dinner extending overnight. 10/31: Doing better with over 75% of time in target range. MET and High dose 132 units toujeo with (90-100 units per day). 05/01: a1c better but CGM shows significant worsening of control. 12/01: a1c holding in mid 8s. Can't tolerate incretin. SGLT2i give UTI/yeast. NAFLD- based on LFTs. 12/01: not as high this now. HYPOTHYROID- generic replacement. 04/01: TSH up to 6.05 and dose just increased to 137. Has been on 150mcg in past with s/e. 2021: TSH at goal on 137. 2022: stable on 137. PULMONARY: - ASTHMA- on brief steroids 01/2018 - SLEEP APNEA but with daytime somnolence (9/22)- Talat added Nuvigil (low dose). GASTROINTESTINAL : - Reflux. Also GB surgery. Cardiac sx (2020): plasma catechols WNL. (+) Family stresses. (niece with psych issues, mom with depression, sister with similar health problems) CGM REPORT: DATES: 10/29/22-11/25/22 AVG GLU: 227 mg/DL Time in range: 27% Time high: 73% with 34% over 250 mg/DL. Time low: 0% GENERAL PATTERN: There are essentially no times when the average glucose is in the target range. There is great variability across the 24-hour period. The average at midnight is 250 and decreases to approximately 200 by 4 a.m. After rising briefly to 220 at 6 AM values decreased back towards 180-200 between 9 AM and noon. Values then increase back towards 230 mg/DL by 4-5 PM. Values decrease to approximately 220 at 6 PM and then rise fairly quickly to an average of approximately 280 from 10-11 PM before starting to decrease back towards 250 at midnight. INDIVIDUAL DAYS: Download gives significantly complete information regarding insulin doses and dietary choices. There is also a history of being on vacation for nearly 2 weeks of this 4 week interval. There are numerous instances of elevations in the evening. Many of the dietary choices are high in carbohydrates. The coverage doses of short-acting insulin are also elevated but frequently do not seem to result in significant lowering of glucose values after evening meals. As a result, glucose values are often quite high during the evening and remain elevated well past midnight. Of note, when values are in the target range by 11 PM, they typically remain in the range overnight. There are some additional instances of hypoglycemia beginning around noon time. IMPRESSION: Poor control of diabetes with only 27% of the time spent in the target range. Significant elevations in the evening arise from dietary choices. Fairly large amounts of insulin are used but do not seem to be fully correcting blood sugars. Overall, glucose values overnight are consistent with their values in the late evening. RECOMMENDATION: Emphasis on educating patient on choices for evening meals with an emphasis on calorie and carbohydrate reduction. Would still consider increasing short-acting for evening meals and snacks to better cover hyperglycemia. The goal should be to get values close to 180 by late evening since values remained fairly stable overnight. PRIOR CGM: 03/19/22-04/15/22 IMPRESSION: Poor control of diabetes with only 37% of the time in the target range. 63% of the time is spent in the elevated hyperglycemic range. Most of the increases in glucose value occur in the evening and extend overnight. RECOMMENDATION: Reviewed treatments for dinner time glycemic control. It may be worth reviewing timing of long-acting insulin or option of twice a day dosing. PREVIOUS CGM: 09/18/21-10/15/21 IMPRESSION: Excellent control of diabetes with over 75% of time spent in target zone. The few more severe hyperglycemic night time episodes tend to exaggerate the impact on average pattern. PRIOR CGM: DATES: 03/14/21- 04/10/21 IMPRESSION: Sub-optimal control of glucose values with 49% of time in range. Glucose values frequently go up after dinner and can remain high over night. Values can occasionally increase after lunch, but not as high and not as often. PREVIOUS CGM: DATES: 09/12-10/09/20 IMPRESSION: Very good overall control with nearly 80% of time spent in target range. Increases in evening about 1/3 of the time. Rare prolonged hypoglycemia overnight should be confirmed to make sure not a false positive. Enhanced Provider time spent performing enhanced activities which may include, but are not limited to: reviewing tests, obtaining and/or reviewing patient history; ordering medications, test or procedures; EMR documentation; communication with patient, family, caregiver(s), VNA; pre-visit prep time communication with specialists, ER staff. Time spent: 57 minutes 12/01 05/01: Increase dinner scale. Increase Toujeo 132 -> 150 units. Plan on dinner short-acting closer to 40-50 units. 12/01: Highs in evening often extend past [place]. Problem is poor choices in evening. Sl. fewer episodes around bkfst. [email or web address] Not available 11/28/2022 15:40:11 06/03/2023 06/03/2023 T2DM on Toujeo, Humalog and metformin and glipizide - unable to tolerate victoza, trulicity or ozempic. - A1c not at goal. 03/30- Humalog was added (dinner only initially). 2020- Using breakfast and lunch. 04/02: toujeo 124. CGM shows highs post-lunch and (moreso) post-dinner extending overnight. 9/22: Doing better with over 75% of time in target range. MET and High dose 132 units toujeo with (90-100 units per day). 05/01: a1c better but CGM shows significant worsening of control. 12/01: a1c holding in mid 8s. Can't tolerate incretin. SGLT2i give UTI/yeast. NAFLD- based on LFTs. 12/01: not as high this now. HYPOTHYROID- generic replacement. 04/01: TSH up to 6.05 and dose just increased to 137. Has been on 150mcg in past with s/e. 2021: TSH at goal on 137. 2022: stable on 137. PULMONARY: - ASTHMA- on brief steroids 01/2018 - SLEEP APNEA but with daytime somnolence (10/31)- Talat added Nuvigil (low dose). GASTROINTESTINAL : - Reflux. Also GB surgery. Cardiac sx (2020): plasma catechols WNL. (+) Family stresses. (niece with psych issues, mom with depression, sister with similar health problems) CGM REPORT: DATES: 05/06/23-06/02/23 AVG GLU: 212 mg/DL with coefficient of variation = 24.3%. CGM was active 97% of the time. Time in range: 30% Time high: 70% Time low: 0% GENERAL PATTERN: Average glucose value is above the target range for nearly the entire 24 hour interval. Values at 6 AM are approximately 200-220 and decrease to about 170 between 10 AM and 1 PM. After that, values increase consistently reaching a peak of approximately 250 by 9 p.m. Values continue to decrease for the rest of the evening and overnight and reach a value of approximately 200-210 between 3-4 AM before rising slowly back towards 210 upon waking. Overall, there is a fairly significant variability in the evening and overnight. INDIVIDUAL DAYS: Most days show increases in glucose beginning around noon time with more significant elevations occurring in the evening. Overnight intervals are sometimes quite high but other times in the target zone. High values in the later evening often predict persistent high values overnight. IMPRESSION: Poor control of diabetes with 30% of the time spent in the target range. There is a tendency for glucose values to increase in the afternoon but evening more of a tendency for them to increase in the later evening. RECOMMENDATION: Review prandial therapies for midday meals and dinner. Higher doses of short-acting insulin may be needed. PRIOR CGM: 10/29/22-11/25/22 IMPRESSION: Poor control of diabetes with only 27% of the time spent in the target range. Significant elevations in the evening arise from dietary choices. Fairly large amounts of insulin are used but do not seem to be fully correcting blood sugars. Overall, glucose values overnight are consistent with their values in the late evening. RECOMMENDATION: Emphasis on educating patient on choices for evening meals with an emphasis on calorie and carbohydrate reduction. Would still consider increasing short-acting for evening meals and snacks to better cover hyperglycemia. The goal should be to get values close to 180 by late evening since values remained fairly stable overnight. PRIOR CGM: 03/19/22-04/15/22 IMPRESSION: Poor control of diabetes with only 37% of the time in the target range. 63% of the time is spent in the elevated hyperglycemic range. Most of the increases in glucose value occur in the evening and extend overnight. RECOMMENDATION: Reviewed treatments for dinner time glycemic control. It may be worth reviewing timing of long-acting insulin or option of twice a day dosing. PREVIOUS CGM: 09/18/21-10/15/21 IMPRESSION: Excellent control of diabetes with over 75% of time spent in target zone. The few more severe hyperglycemic night time episodes tend to exaggerate the impact on average pattern. PRIOR CGM: DATES: 03/14/21- 04/10/21 IMPRESSION: Sub-optimal control of glucose values with 49% of time in range. Glucose values frequently go up after dinner and can remain high over night. Values can occasionally increase after lunch, but not as high and not as often. PREVIOUS CGM: DATES: 09/12-10/09/20 IMPRESSION: Very good overall control with nearly 80% of time spent in target range. Increases in evening about 1/3 of the time. Rare prolonged hypoglycemia overnight should be confirmed to make sure not a false positive. Enhanced Provider time spent performing enhanced activities which may include, but are not limited to: reviewing tests, obtaining and/or reviewing patient history; ordering medications, test or procedures; EMR documentation; communication with patient, family, caregiver(s), VNA; pre-visit prep time communication with specialists, ER staff. Time spent: 54 min (06/02) 05/01: Increase dinner scale. Increase Toujeo 132 -> 150 units. Plan on dinner short-acting closer to 40-50 units. 12/01: Highs in evening often extend past [place]. Problem is poor choices in evening. Sl. fewer episodes around bkfst. 06/02: generally over 200-250 units per day. (150 toujeo + humalog) - Switch to U-500 - Try rybelsus to see if that helps (couldn't tolerate injectables) Problem would be finding time with no food/drink +/- 30 min around pill. PLAN - less starch in PM - if BG over 250 in evening after a week, increase dinner scale by 5 units. - Try to see if can find time for lyn or Aracely to do virtual/video with pt. (see HPI). 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 can end by 3pm (T/W/Fri). / can do noon virtual or 3-4 PM. [email or web address] Not available 08/05/2023 11:18:33 01/20/2024 01/20/2024 T2DM on Toujeo, Humalog and metformin and glipizide - unable to tolerate victoza, trulicity or ozempic. - A1c not at goal. 03/30- Humalog was added (dinner only initially). 2020- Using breakfast and lunch. 04/02: toujeo 124. CGM shows highs post-lunch and (moreso) post-dinner extending overnight. 10/31: Doing better with over 75% of time in target range. MET and High dose 132 units toujeo with (90-100 units per day). 05/01: a1c better but CGM shows significant worsening of control. 12/01: a1c holding in mid 8s. Can't tolerate incretin. SGLT2i give UTI/yeast. 02/01: a1c worse. increase scale at dinner by 10 units. NAFLD- based on LFTs. 12/01: not as high this now. 02/01: stable. can't tolerate incretins. HYPOTHYROID- generic replacement. 04/01: TSH up to 6.05 and dose just increased to 137. Has been on 150mcg in past with s/e. 2021: TSH at goal on 137. 2022: stable on 137. 02/01: stable on 150 PULMONARY: - ASTHMA- on brief steroids 01/2018 - SLEEP APNEA but with daytime somnolence (10/31)- Talat added Nuvigil (low dose). GASTROINTESTINAL : - Reflux. Also GB surgery. 02/01: Bowels up/down. urgent pain starts mid-upper across abdomen and then radiates downwards. Cardiac sx (2020): plasma catechols WNL. (+) Family stresses. (niece with psych issues, mom with depression, sister with similar health problems) CGM REPORT: CGM download TIR= 21% ; HIGH= 77% LOWS= 0% Highs often in early evening. corrects with 20+ units at 11PM and often (but not always) comes down. - Add 10 units to supper scale. if HS BG high in 23 weeks, add another 5 units to supper scale. PRIOR : 05/06/23-06/02/23 IMPRESSION: Poor control of diabetes with 30% of the time spent in the target range. There is a tendency for glucose values to increase in the afternoon but evening more of a tendency for them to increase in the later evening. RECOMMENDATION: Review prandial therapies for midday meals and dinner. Higher doses of short-acting insulin may be needed. PRIOR CGM: 10/29/22-11/25/22 IMPRESSION: Poor control of diabetes with only 27% of the time spent in the target range. Significant elevations in the evening arise from dietary choices. Fairly large amounts of insulin are used but do not seem to be fully correcting blood sugars. Overall, glucose values overnight are consistent with their values in the late evening. RECOMMENDATION: Emphasis on educating patient on choices for evening meals with an emphasis on calorie and carbohydrate reduction. Would still consider increasing short-acting for evening meals and snacks to better cover hyperglycemia. The goal should be to get values close to 180 by late evening since values remained fairly stable overnight. PRIOR CGM: 03/19/22-04/15/22 IMPRESSION: Poor control of diabetes with only 37% of the time in the target range. 63% of the time is spent in the elevated hyperglycemic range. Most of the increases in glucose value occur in the evening and extend overnight. RECOMMENDATION: Reviewed treatments for dinner time glycemic control. It may be worth reviewing timing of long-acting insulin or option of twice a day dosing. PREVIOUS CGM: 09/18/21-10/15/21 IMPRESSION: Excellent control of diabetes with over 75% of time spent in target zone. The few more severe hyperglycemic night time episodes tend to exaggerate the impact on average pattern. PRIOR CGM: DATES: 03/14/21- 04/10/21 IMPRESSION: Sub-optimal control of glucose values with 49% of time in range. Glucose values frequently go up after dinner and can remain high over night. Values can occasionally increase after lunch, but not as high and not as often. PREVIOUS CGM: DATES: 09/12-10/09/20 IMPRESSION: Very good overall control with nearly 80% of time spent in target range. Increases in evening about 1/3 of the time. Rare prolonged hypoglycemia overnight should be confirmed to make sure not a false positive. Enhanced Provider time spent performing enhanced activities which may include, but are not limited to: reviewing tests, obtaining and/or reviewing patient history; ordering medications, test or procedures; EMR documentation; communication with patient, family, caregiver(s), VNA; pre-visit prep time communication with specialists, ER staff. Time spent: 56 min (02/01) 05/01: Increase dinner scale. Increase Toujeo 132 -> 150 units. Plan on dinner short-acting closer to 40-50 units. 12/01: Highs in evening often extend past [place]. Problem is poor choices in evening. Sl. fewer episodes around bkfst. 06/02: generally over 200-250 units per day. (150 toujeo + humalog) - Switch to U-500 - Try rybelsus to see if that helps (couldn't tolerate injectables) Problem would be finding time with no food/drink +/- 30 min around pill. PLAN - less starch in PM - if BG over 250 in evening after a week, increase dinner scale by 5 units. - Try to see if can find time for lyn or Aracely to do virtual/video with pt. (see HPI). 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 can end by 3pm (T/W/Fri). M/Th can do noon virtual or 3-4 PM. 02/01: - Add 10 units to supper scale. if HS BG high in 23 weeks, add another 5 units to supper scale. [email or web address] Not available 01/20/2024 19:02:43 Plan of Treatment Reminders Order Date Submit Date Provider Last Modified By Organization Details Last Modified Time Details Appointments Follow Up, 40 2024 04:20P M Travis Bright MD Not available Not available Not available Lab None recorded. Referral None recorded. Procedures None recorded. Surgeries None recorded. Imaging None recorded. Medication Orders metformin ER 750 mg tablet,ex tended release 24 hr 2023 024 [id number], [address], [place], [place], [id number], 01/20/2024 19:03:18 metformin ER 750 mg tablet,ex tended release 24 hr 2022 023 ROSIE Not available 11/28/2022 15:45:03 Patient TargetsNo targets recorded. Patient Instructions Encounter Date Encounter Id Patient Instructions Last Modified By Organization Details Last Modified Time 05/27/2022 [id number] - Take snack dos e of Humalog at the time of the snack, not after the snack. - Increase your dinnertime Humalog scale by 2 units. - Continue to log meals and Humalog doses as regularly as possible, as this helps greatly with pattern management. - Consider restarting physical activity as tolerated. - Please call or send a portal message with any other questions or concerns. [email or web address] Not available 05/27/2022 13:12:41 Follow up with diabetes education in August Patient agreed to this visit via secure telehealth platform. Patient understands this is a scheduled visit and the usual procedures with regard to billing and confidentiality apply. Patient was notified that the provider location is [facility] Patient location: home During the visit the patient? s medical history and medical record were reviewed. The patient was notified to call our office for worsening or urgent symptoms. [email or web address] Not available 05/27/2022 13:12:45 08/19/2022 [id number] - Increase both the breakfast/lunch Humalog scale and dinner Humalog scales by 4 units. - After 5 days of the increased Humalog, increase Toujeo to 160 units if fasting BG continue to consistently be over 150 mg/dl. - Please call or send a portal message with any other questions or concerns. [email or web address] Not available 08/19/2022 15:47:09 Follow up with diabetes education in October Patient agreed to this visit via secure telehealth platform. Patient understands this is a scheduled visit and the usual procedures with regard to billing and confidentiality apply. Patient was notified that the provider location is [facility] Patient location: home During the visit the patient? s medical history and medical record were reviewed. The patient was notified to call our office for worsening or urgent symptoms. [email or web address] Not available 08/19/2022 15:47:14 11/26/2022 [id number] - Increase Touje o- 150 units 12/01: GLUCOSE........... ..BKFST/LUNCH..... ..............DINN ER 120-150........... ........32........ .................. ............increa se 40 -> 45 151-200........... ........38........ .................. ............increa se 46-> 51 201-250........... ........42........ .................. ............increa se 50 -> 55 251-300........... ........46 .................. .................. ..increase 54-> 59 OVER.............. .................. .................. .................. .increase 56 -> 61 Continue to take short-acting for 10PM snack: PM snacks: 100-250:.......... .........19 units over 250:.............. .....24 units - Continue taking thyroid hormone every day away from other food and especially from other minerals like calcium (dairy), iron, magnesium, etc. - Contact office if any symptoms of low thyroid (excess fatigue, unexplained weight gain, feeling much more cold than usual, constipation, very dry skin) or excess thyroid (heart racing, unexplained weight loss, feeling jittery/nervous/an xious, change in frequency of moving bowels, tremors, or insomnia). [email or web address] Not available 11/28/2022 15:44:02 6+ months/ 60 minutes. Not available 11/25/2022 09:51:03 06/03/2023 [id number] - Increase Touje o- 150 units PREVIOUS SLIDING SCALE. GLUCOSE........... ..BKFST/LUNCH..... ..............DINN ER 120-150........... ........32........ .................. ............45 151-200........... ........38........ .................. ............51 201-250........... ........42........ .................. ............55 251-300........... ........46 .................. .................. .59 OVER.............. .................. .................. .................. 61 Continue to take short-acting for 10PM snack: PM snacks: 100-250:.......... .........19 units over 250:.............. .....24 units 06/02: If BG over 250 in evening after a week, increase dinner scale by 5 units. - Continue taking thyroid hormone every day away from other food and especially from other minerals like calcium (dairy), iron, magnesium, etc. - Contact office if any symptoms of low thyroid (excess fatigue, unexplained weight gain, feeling much more cold than usual, constipation, very dry skin) or excess thyroid (heart racing, unexplained weight loss, feeling jittery/nervous/an xious, change in frequency of moving bowels, tremors, or insomnia). [email or web address] Not available 08/05/2023 11:18:13 6+ months/ 60 minutes. Not available 06/02/2023 14:49:20 01/20/2024 [id number] - Increase Touje o- 150 units INCREASE SLIDING SCALE (02/01). GLUCOSE........... ..BKFST/LUNCH..... ..............DINN ER 120-150........... ........32........ .................. ............55 151-200........... ........38........ .................. ............61 201-250........... ........42........ .................. ............65 251-300........... ........46 .................. .................. .69 OVER.............. .................. .................. .................. 71 Continue to take short-acting for 10PM snack: PM snacks: 100-250:.......... .........19 units over 250:.............. .....24 units - Continue taking thyroid hormone every day away from other food and especially from other minerals like calcium (dairy), iron, magnesium, etc. - Contact office if any symptoms of low thyroid (excess fatigue, unexplained weight gain, feeling much more cold than usual, constipation, very dry skin) or excess thyroid (heart racing, unexplained weight loss, feeling jittery/nervous/an xious, change in frequency of moving bowels, tremors, or insomnia). [email or web address] Not available 01/20/2024 18:37:24 6+ months/ 60 minutes. (OK to book at end of day in [facility]- 4:40-4:45) [email or web address] Not available 01/20/2024 19:01:22 Reason for Referral None Reported. Results Created Date Observation Date Name Description Value Unit Range Abnormal Flag Note LastModifiedBy Organization Detail LastModifiedTime 08/24/19 23 08/23/2022 COMPR EHENS SHELLY METAB OLIC PANL glucose 183 mg/dL (70-99 ) high Not Available [facility] (Centralized Electronic Ordering - All Locations) Patient Can Go To The Location Of Their Choice, 08/23/2022 15:30:43 08/24/19 23 08/23/2022 COMPR EHENS SHELLY METAB OLIC PANL BUN 10 mg/dL (6-20) Not Available [facility] (Centralized Electronic Ordering - All Locations) Patient Can Go To The Location Of Their Choice, 08/23/2022 15:30:43 08/24/1908/23/2022 COMPR EHENS SHELYL METAB OLIC PANL creatinine 0.7 mg/dL (0.5-1 .0) Not Available [facility] (Centralized Electronic Ordering - All Locations) Patient Can Go To The Location Of Their Choice, 08/23/2022 15:30:43 08/24/1908/23/2022 COMPR EHENS SHELLY METAB OLIC PANL sodium 136 mmol/ L (133-1 45) Not Available [facility] (Centralized Electronic Ordering - All Locations) Patient Can Go To The Location Of Their Choice, 08/23/2022 15:30:43 08/24/1908/23/2022 COMPR EHENS SHELLY METAB OLIC PANL potassium 4.3 mmol/ L (3.6-5 .2) Not Available [facility] (Centralized Electronic Ordering - All Locations) Patient Can Go To The Location Of Their Choice, 08/23/2022 15:30:43 08/24/1908/23/2022 COMPR EHENS SHELLY METAB OLIC PANL chloride 101 mmol/ L (98-10 7) Not Available [facility] (Centralized Electronic Ordering - All Locations) Patient Can Go To The Location Of Their Choice, 08/23/2022 15:30:43 08/24/1908/23/2022 COMPR EHENS SHELLY METAB OLIC PANL bicarbonate 25 mmol/ L (22-29 ) Not Available [facility] (Centralized Electronic Ordering - All Locations) Patient Can Go To The Location Of Their Choice, 08/23/2022 15:30:43 08/24/1908/23/2022 COMPR EHENS SHELLY METAB OLIC PANL anion gap 10 (4-17) Not Available [facility] (Centralized Electronic Ordering - All Locations) Patient Can Go To The Location Of Their Choice, 08/23/2022 15:30:43 08/24/1908/23/2022 COMPR EHENS SHELLY METAB OLIC PANL albumin 4.4 gm/dL (3.4-4 .8) Not Available [facility] (Centralized Electronic Ordering - All Locations) Patient Can Go To The Location Of Their Choice, 08/23/2022 15:30:43 08/24/1908/23/2022 COMPR EHENS SHELLY METAB OLIC PANL calcium 9.5 mg/dL (8.6-1 0.5) Not Available [facility] (Centralized Electronic Ordering - All Locations) Patient Can Go To The Location Of Their Choice, 08/23/2022 15:30:43 08/24/1908/23/2022 COMPR EHENS SHELLY METAB OLIC PANL bilirubin,to kirt 0.3 mg/dL (0-1.2 ) Not Available [facility] (Centralized Electronic Ordering - All Locations) Patient Can Go To The Location Of Their Choice, 08/23/2022 15:30:43 08/24/1908/23/2022 COMPR EHENS SHELLY METAB OLIC PANL total protein 6.1 gm/dL (6.2-8 .2) low Not Available [facility] (Centralized Electronic Ordering - All Locations) Patient Can Go To The Location Of Their Choice, 08/23/2022 15:30:43 08/24/1908/23/2022 COMPR EHENS SHELLY METAB OLIC PANL Ag ratio 2.6 Not Available [facility] (Centralized Electronic Ordering - All Locations) Patient Can Go To The Location Of Their Choice, 08/23/2022 15:30:43 08/24/1908/23/2022 COMPR EHENS SHELLY METAB OLIC PANL AST 43 U/L (0-32) high Not Available [facility] (Centralized Electronic Ordering - All Locations) Patient Can Go To The Location Of Their Choice, 08/23/2022 15:30:43 08/24/1908/23/2022 COMPR EHENS SHELLY METAB OLIC PANL alk phos 71 U/L (35-10 4) Not Available [facility] (Centralized Electronic Ordering - All Locations) Patient Can Go To The Location Of Their Choice, 08/23/2022 15:30:43 08/24/1908/23/2022 COMPR EHENS SHELLY METAB OLIC PANL ALT 63 U/L (0-33) high Not Available [facility] (Centralized Electronic Ordering - All Locations) Patient Can Go To The Location Of Their Choice, 08/23/2022 15:30:43 08/24/1908/23/2022 COMPR EHENS SHELLY METAB OLIC PANL estimated GFR creatinine 102 mL/mi n/1.7 3_M2 Creat inine based estim ated glome rular filtr ation (eGFR ) in adult s is calcu lated using the Natio nal Kidne y Found ation recom kathy d 2020 CKD-E PI equat ion. Estim ates GFR from serum creat inine , age and sex. Not Available [facility] (Centralized Electronic Ordering - All Locations) Patient Can Go To The Location Of Their Choice, 08/23/2022 15:30:43 08/24/1908/23/2022 LIPID PANEL cholesterol, total 162 mg/dL (<200) Not Available [facility] ([facility]ized [facility] Ordering - All Locations) Patient Can Go To The Location Of Their Choice, 08/23/2022 15:30:45 08/24/1908/23/2022 LIPID PANEL triglyceride 120 mg/dL (<150) Not Available [facility] (Centralized Electronic Ordering - All Locations) Patient Can Go To The Location Of Their Choice, 08/23/2022 15:30:45 08/24/1908/23/2022 LIPID PANEL HDL chol 60 mg/dL (>39) Not Available [facility] (Centralized Electronic Ordering - All Locations) Patient Can Go To The Location Of Their Choice, 08/23/2022 15:30:45 08/24/1908/23/2022 LIPID PANEL LDL cholesterol, calculated 78 mg/dL (0-130 ) Not Available [facility] (Centralized Electronic Ordering - All Locations) Patient Can Go To The Location Of Their Choice, 08/23/2022 15:30:45 08/24/1908/23/2022 LIPID PANEL non HDL cholesterol (calc) 102 mg/dL (<160) Not Available [facility] (Centralized Electronic Ordering - All Locations) Patient Can Go To The Location Of Their Choice, 08/23/2022 15:30:45 08/24/1908/23/2022 FREE T4 free T4 1.25 NG/dL (0.70- 1.80) Not Available [facility] (Centralized Electronic Ordering - All Locations) Patient Can Go To The Location Of Their Choice, 08/23/2022 15:31:43 08/24/1908/23/2022 TSH TSH 2.14 uIU/m L (0.4-4 .2) Not Available [facility] (Centralized Electronic Ordering - All Locations) Patient Can Go To The Location Of Their Choice, 08/23/2022 15:31:45 08/24/1908/23/2022 URINA RY MICRO ALBUM IN micro-albumi n <12.0 mg/L (<20) The urine micro album in test is desig hilda to monit or renal funct ion. When scree sadie for Bence Mendez prote inuri a, urine elect ropho resis is recom kathy d. Not Available [facility] (Centralized Electronic Ordering - All Locations) Patient Can Go To The Location Of Their Choice, 08/23/2022 15:57:09 08/24/1908/23/2022 URINA RY MICRO ALBUM IN malb/creat ratio UNABLE TO CALCUL ATE mg/gm (0-20) Not Available [facility] (Centralized Electronic Ordering - All Locations) Patient Can Go To The Location Of Their Choice, 08/23/2022 15:57:09 08/24/1908/23/2022 URINA RY MICRO ALBUM IN urine creat for micro albumin 40.4 mg/dL Not Available [facility] (Centralized [facility] Ordering - All Locations) Patient Can Go To The Location Of Their Choice, 08/23/2022 15:57:09 08/24/1908/23/2022 HEMOG LOBIN A1C hemoglobin A1C 8.9 % (4.0-5 .6) high MONIT ORING : In known diabe tic patie nts, hemog lobin A1c targe ts shoul d be discu ssed with healt h care provi minda. DIAGN OSTIC USE: The Ameri can Diabe leonardo Assoc iatio n (ADA) and the World Healt h Organ izati on (WHO) recom mend the use of HbA1c to diagn ose diabe leonardo using a thres hold of 6.5%. Patie nts who have an HbA1c betwe en 5.7% and 6.4% are consi dered at incre ased risk for devel oping diabe leonardo in the futur eAlicja CAUTI ON: False ly low HbA1c resul ts may be obser gerard in patie nts with hemol ytic anemi a, homoz ygous forms of abnor mal hemog lobin (e.g. SS, CC, SC), pregn cydney, recen t blood loss or hemog lobin F great er than 7%. Fruct osami ne may be used as an alter iker test in these cases . REFER ENCE: ADA: [facility] [employer] [facility] al [facility] in Diabe leonardo 2019, The Journ al of Clini micheal and Appli ed Resea [facility] and Educa tion Volum e 43, Suppl ement 1 Not Available [facility] (Centralized Electronic Ordering - All Locations) Patient Can Go To The Location Of Their Choice, 08/23/2022 16:49:50 11/02/1911/01/2022 FREE T4 free T4 1.30 NG/dL (0.70- 1.80) Not Available [facility] (Centralized Electronic Ordering - All Locations) Patient Can Go To The Location Of Their Choice, 11/01/2022 15:16:40 11/02/1911/01/2022 TSH TSH 1.93 uIU/m L (0.4-4 .2) Not Available [facility] (Centralized Electronic Ordering - All Locations) Patient Can Go To The Location Of Their Choice, 11/01/2022 15:16:43 11/02/1911/01/2022 HEMOG LOBIN A1C hemoglobin A1C 8.4 % (4.0-5 .6) high MONIT ORING : In known diabe tic patie nts, hemog lobin A1c targe ts shoul d be discu ssed with healt h care provi minda. DIAGN OSTIC USE: The Ameri can Diabe leonardo Assoc iatio n (ADA) and the World Healt h Organ izati on (WHO) recom mend the use of HbA1c to diagn ose diabe leonardo using a thres hold of 6.5%. Patie nts who have an HbA1c betwe en 5.7% and 6.4% are consi dered at incre ased risk for devel oping diabe leonardo in the futur e. CAUTI ON: False ly low HbA1c resul ts may be obser gerard in patie nts with hemol ytic anemi a, homoz ygous forms of abnor mal hemog lobin (e.g. SS, CC, SC), pregn cydney, recen t blood loss or hemog lobin F great er than 7%. Fruct osami ne may be used as an alter iker test in these cases . REFER ENCE: ADA: [employer] Medic al Care in Diabe leonardo 2019, The Journ al of Clini micheal and Appli ed Resea rch and Educa tion Volum e 43, Suppl ement 1 Not Available [facility] (Centralized Electronic Ordering - All Locations) Patient Can Go To The Location Of Their Choice, [id number] 11/01/2022 15:56:15 05/23/19 24 05/26/2023 COMP. METAB OLIC PANEL (14) glucose 176 mg/dL 70-99 above high normal Not Available [facility] ([facility]) [address] [place], [address], 05/26/2023 20:06:24 05/23/19 24 05/26/2023 COMP. METAB OLIC PANEL (14) BUN 10 mg/dL 6-24 normal Not Available [facility] ([facility]) [address] [place], [address], 05/26/2023 20:06:24 05/23/19 24 05/26/2023 COMP. METAB OLIC PANEL (14) creatinine 0.61 mg/dL 0.57-1 .00 normal Not Available [facility] ([facility]) [address] [place], [address], 05/26/2023 20:06:24 05/23/19 24 05/26/2023 COMP. METAB OLIC PANEL (14) eGFR 104 mL/mi n/1.7 3 >59 Not Available [facility] ([facility]) [address], [place], [address], 05/26/2023 20:06:24 05/23/19 24 05/26/2023 COMP. METAB OLIC PANEL (14) BUN/creatini ne ratio 16 9-23 normal Not Available [facility] ([facility]) [address] [place], [place], [address], 05/26/2023 20:06:24 05/23/19 24 05/26/2023 COMP. METAB OLIC PANEL (14) sodium 139 mmol/ L 134-14 4 normal Not Available [facility] ([facility]) [address], [place], [address], 05/26/2023 20:06:24 05/23/19 24 05/26/2023 COMP. METAB OLIC PANEL (14) potassium 4.4 mmol/ L 3.5-5. 2 normal Not Available [facility] ([facility]) [address], [place], [address], 05/26/2023 20:06:24 05/23/19 24 05/26/2023 COMP. METAB OLIC PANEL (14) chloride 102 mmol/ L 96-106 normal Not Available [facility] ([facility]) [address], [place], [address], 05/26/2023 20:06:24 05/23/19 24 05/26/2023 COMP. METAB OLIC PANEL (14) carbon dioxide, total 20 mmol/ L 20-29 normal Not Available [facility] ([facility]) [address], [place], [address], 05/26/2023 20:06:24 05/23/19 24 05/26/2023 COMP. METAB OLIC PANEL (14) calcium 9.5 mg/dL 8.7-10 .2 normal Not Available [facility] ([facility]) [address] [place], [address], 05/26/2023 20:06:24 05/23/19 24 05/26/2023 COMP. METAB OLIC PANEL (14) protein, total 6.3 g/dL 6.0-8. 5 normal Not Available [facility] ([facility]) [address] [place], [address], 05/26/2023 20:06:24 05/23/19 24 05/26/2023 COMP. METAB OLIC PANEL (14) albumin 4.2 g/dL 3.8-4. 9 normal Not Available [facility] ([facility]) [address] [place], [address], 05/26/2023 20:06:24 05/23/19 24 05/26/2023 COMP. METAB OLIC PANEL (14) globulin, total 2.1 g/dL 1.5-4. 5 Not Available [facility] ([facility]) [address] [place], [address], 05/26/2023 20:06:24 05/23/19 24 05/26/2023 COMP. METAB OLIC PANEL (14) A/G ratio 2.0 1.2-2. 2 Not Available [facility] ([facility]) [address] [place], [address], 05/26/2023 20:06:24 05/23/19 24 05/26/2023 COMP. METAB OLIC PANEL (14) bilirubin, total 0.3 mg/dL 0.0-1. 2 normal Not Available [facility] ([facility]) [address] [place], [address], 05/26/2023 20:06:24 05/23/19 24 05/26/2023 COMP. METAB OLIC PANEL (14) alkaline phosphatase 81 IU/L 44-121 normal Not Available [facility] ([facility]) [address] [place], [address], 05/26/2023 20:06:24 05/23/19 24 05/26/2023 COMP. METAB OLIC PANEL (14) AST (SGOT) 46 IU/L 0-40 above high normal Not Available [facility] ([facility]) [address] [place], [address], 05/26/2023 20:06:24 05/23/19 24 05/26/2023 COMP. METAB OLIC PANEL (14) ALT (SGPT) 42 IU/L 0-32 above high normal Not Available [facility] ([facility]) [address] [place], [address], 05/26/2023 20:06:24 05/23/19 24 05/26/2023 LIPID PANEL cholesterol, total 163 mg/dL 100-19 9 normal Not Available [facility] ([facility]) [address] [place], [address], 05/26/2023 20:06:25 05/23/19 24 05/26/2023 LIPID PANEL triglyceride s 130 mg/dL 0-149 normal Not Available [facility] ([facility]) [address] [place], [address], 05/26/2023 20:06:25 05/23/19 24 05/26/2023 LIPID PANEL HDL cholesterol 58 mg/dL >39 normal Not Available [facility] ([facility]) [address] [place], [address], 05/26/2023 20:06:25 05/23/19 24 05/26/2023 LIPID PANEL VLDL cholesterol micheal 23 mg/dL 5-40 Not Available [facility] ([facility]) [address] [place], [address], 05/26/2023 20:06:25 05/23/19 24 05/26/2023 LIPID PANEL LDL chol calc ([facility]) 82 mg/dL 0-99 Not Available [facility] ([facility]) [address] [facility], [place], [address], 05/26/2023 20:06:25 05/23/19 24 05/26/2023 LIPID PANEL comment: SIGNAL CIRCUIT DESIGNER Not Available [facility] ([facility]) [address] [facility], [place], [address], 05/26/2023 20:06:25 05/23/19 24 05/26/2023 ALBUM IN/CR EATIN INE RATIO ,URIN E creatinine, urine 31.7 mg/dL not estab. normal Not Available [facility] ([facility]) [address] [place], [address], 05/26/2023 20:06:26 05/23/19 24 05/26/2023 ALBUM IN/CR EATIN INE RATIO ,URIN E albumin, urine 3.0 ug/mL not estab. Not Available [facility] ([facility]) [address] [facility], [place], [address], 05/26/2023 20:06:26 05/23/19 24 05/26/2023 ALBUM IN/CR EATIN INE RATIO ,URIN E alb/creat ratio 9 mg/g_ creat 0-29 Dorys l: 0 - 29 Moder ately incre ased: 30 - 300 Sever adrian incre ased: >300 Not Available [facility] ([facility]) [address] [place], [address], 05/26/2023 20:06:26 05/23/19 24 05/30/2023 HEMOG LOBIN A1C hemoglobin A1C COMMEN T % [facility] was unabl e to colle ct suffi cient speci men to perfo rm the follo wing test( s), and is provi ding the patie nt with re-co llect ion instr uctio ns. [facility] will conta ct your patie nt to sched ule a time for recol lecti on. James lopez we be unabl e to make conta ct with your patie nt, your offic e will be notif ied. Predi abete s: 5.7 - 6.4 Diabe leonardo: >6.4 Glyce jose contr ol for adult s with diabe leonardo: <7.0 Not Available [facility] ([facility]) [address] [place], [address], 05/30/2023 14:08:19 05/23/19 24 05/26/2023 TSH TSH 3.340 uIU/m L 0.450- 4.500 normal Not Available [facility] ([facility]) [address] [place], [address], 05/30/2023 14:08:21 05/23/19 24 05/26/2023 THYRO XINE (T4) thyroxine (T4) 8.3 ug/dL 4.5-12 .0 normal Not Available [facility] ([facility]) [address] [place], [address], 05/30/2023 14:08:21 10/23/19 24 10/24/2023 HEMOG LOBIN A1C hemoglobin A1C 10.2 % 4.8-5. 6 above high normal Predi abete s: 5.7 - 6.4 Diabe leonardo: >6.4 Glyce jose contr ol for adult s with diabe leonardo: <7.0 Not Available [facility] ([facility]) [address] [place], [address], 10/24/2023 06:09:39 10/23/19 24 10/24/2023 TSH TSH 4.920 uIU/m L 0.450- 4.500 above high normal Not Available [facility] ([facility]) [address] [place], [address], 10/24/2023 06:09:40 10/23/19 24 10/24/2023 THYRO XINE (T4) thyroxine (T4) 8.1 ug/dL 4.5-12 .0 normal Not Available [facility] ([facility]) [address] [facility], [place], [address], 10/24/2023 06:09:40 01/16/20 24 01/20/2024 COMP. METAB OLIC PANEL (14) glucose TNP mg/dL [facility] was unabl e to colle ct suffi cient speci men to perfo rm the follo wing test( s), and is provi ding the patie nt with re-co llect ion instr uctio ns. Not Available [facility] ([facility]) [address] [facility], [place], [address], 01/20/2024 16:06:42 01/16/20 24 01/20/2024 COMP. METAB OLIC PANEL (14) BUN TNP Test not perfo rmed Not Available [facility] ([facility]) [address] [facility], [place], [address], 01/20/2024 16:06:42 01/16/20 24 01/20/2024 COMP. METAB OLIC PANEL (14) creatinine TNP Test not perfo rmed Not Available [facility] ([facility]) [address] [facility], [place], [address], 01/20/2024 16:06:42 01/16/20 24 01/20/2024 COMP. METAB OLIC PANEL (14) eGFR SIGNAL CIRCUIT DESIGNER Not Available [facility] ([facility]) [address] [facility], [place], [address], 01/20/2024 16:06:42 01/16/20 24 01/20/2024 COMP. METAB OLIC PANEL (14) BUN/creatini ne ratio SIGNAL CIRCUIT DESIGNER Not Available [facility] ([facility]) [address] [facility], [place], [address], 01/20/2024 16:06:42 01/16/20 24 01/20/2024 COMP. METAB OLIC PANEL (14) sodium TNP Test not perfo rmed Not Available [facility] ([facility]) [address], [place], [address], 01/20/2024 16:06:42 01/16/20 24 01/20/2024 COMP. METAB OLIC PANEL (14) potassium TNP Test not perfo rmed Not Available [facility] ([facility]) [address], [place], [address], 01/20/2024 16:06:42 01/16/20 24 01/20/2024 COMP. METAB OLIC PANEL (14) chloride TNP Test not perfo rmed Not Available [facility] ([facility]) [address], [place], [address], 01/20/2024 16:06:42 01/16/20 24 01/20/2024 COMP. METAB OLIC PANEL (14) carbon dioxide, total TNP Test not perfo rmed Not Available [facility] ([facility]) [address], [place], [address], 01/20/2024 16:06:42 01/16/20 24 01/20/2024 COMP. METAB OLIC PANEL (14) calcium TNP Test not perfo rmed Not Available [facility] ([facility]) [address], [place], [address], 01/20/2024 16:06:42 01/16/20 24 01/20/2024 COMP. METAB OLIC PANEL (14) protein, total TNP Test not perfo rmed Not Available [facility] ([facility]) [address], [place], [address], 01/20/2024 16:06:42 01/16/20 24 01/20/2024 COMP. METAB OLIC PANEL (14) albumin TNP Test not perfo rmed Not Available [facility] ([facility]) [address], [place], [address], 01/20/2024 16:06:42 01/16/20 24 01/20/2024 COMP. METAB OLIC PANEL (14) globulin, total SIGNAL CIRCUIT DESIGNER Not Available [facility] ([facility]) [address], [place], [address], 01/20/2024 16:06:42 01/16/20 24 01/20/2024 COMP. METAB OLIC PANEL (14) A/G ratio SIGNAL CIRCUIT DESIGNER Not Available [facility] ([facility]) [address], [place], [address], 01/20/2024 16:06:42 01/16/20 24 01/20/2024 COMP. METAB OLIC PANEL (14) bilirubin, total TNP Test not perfo rmed Not Available [facility] ([facility]) [address], [place], [address], 01/20/2024 16:06:42 01/16/20 24 01/20/2024 COMP. METAB OLIC PANEL (14) alkaline phosphatase TNP Test not perfo rmed Not Available [facility] ([facility]) [address], [place], [address], 01/20/2024 16:06:42 01/16/20 24 01/20/2024 COMP. METAB OLIC PANEL (14) AST (SGOT) TNP Test not perfo rmed Not Available [facility] ([facility]) [address] [facility], [place], [address], 01/20/2024 16:06:42 01/16/20 24 01/20/2024 COMP. METAB OLIC PANEL (14) ALT (SGPT) TNP Test not perfo rmed Not Available [facility] ([facility]) [address], [place], [address], 01/20/2024 16:06:42 01/16/20 24 01/20/2024 LIPID PANEL cholesterol, total TNP mg/dL [facility] was unabl e to colle ct suffi cient speci men to perfo rm the follo wing test( s), and is provi ding the patie nt with re-co llect ion instr uctio ns. Not Available [facility] ([facility]) [address] [facility], [place], [address], 01/20/2024 16:06:44 01/16/20 24 01/20/2024 LIPID PANEL triglyceride s TNP Test not perfo rmed Not Available [facility] ([facility]) [address] [facility], [place], [address], 01/20/2024 16:06:44 01/16/20 24 01/20/2024 LIPID PANEL HDL cholesterol TNP Test not perfo rmed Not Available [facility] ([facility]) [address] [facility], [place], [address], 01/20/2024 16:06:44 01/16/20 24 01/20/2024 LIPID PANEL VLDL cholesterol micheal COMMEN T mg/dL Unabl e to calcu late resul t since non-n umeri c resul t obtai hilda for compo nent test. Not Available [facility] ([facility]) [address] [facility], [place], [address], 01/20/2024 16:06:44 01/16/20 24 01/20/2024 LIPID PANEL LDL chol calc ([facility]) SIGNAL CIRCUIT DESIGNER Not Available [facility] ([facility]) [address] [facility], [place], [address], 01/20/2024 16:06:44 01/16/20 24 01/20/2024 LIPID PANEL LDL calc comment: SIGNAL CIRCUIT DESIGNER Not Available [facility] ([facility]) [address] [facility], [place], [address], 01/20/2024 16:06:44 01/16/20 24 01/20/2024 ALBUM IN/CR EATIN INE RATIO ,URIN E creatinine, urine COMMEN T mg/dL Test not perfo rmed. Patie nt was unabl e to provi de a self- colle cted speci men for the reque sted testi ng. The follo wing test( s) were not perfo rmed: Not Available [facility] ([facility]) [address] [place], [address], 01/20/2024 16:06:44 01/16/20 24 01/20/2024 ALBUM IN/CR EATIN INE RATIO ,URIN E albumin, urine TNP Test not perfo rmed Not Available [facility] ([facility]) [address] [place], [address], 01/20/2024 16:06:44 01/16/20 24 01/20/2024 ALBUM IN/CR EATIN INE RATIO ,URIN E alb/creat ratio SIGNAL CIRCUIT DESIGNER Not Available [facility] ([facility]) [address] [place], [address], 01/20/2024 16:06:44 01/16/20 24 01/20/2024 HEMOG LOBIN A1C hemoglobin A1C TNP % [facility] was unabl e to colle ct suffi cient speci men to perfo rm the follo wing test( s), and is provi ding the patie nt with re-co llect ion instr uctio ns. Predi abete s: 5.7 - 6.4 Diabe leonardo: >6.4 Glyce jose contr ol for adult s with diabe leonardo: <7.0 Not Available [facility] ([facility]) [address] [place], [address], 01/20/2024 16:06:45 01/16/20 24 01/20/2024 THYRO XINE (T4) FREE, DIREC T T4,free(dire ct) TNP NG/dL [facility] was unabl e to colle ct suffi cient speci men to perfo rm the follo wing test( s), and is provi ding the patie nt with re-co llect ion instr uctio ns. Not Available [facility] ([facility]) [address] [place], [address], 01/20/2024 16:06:46 01/16/20 24 01/20/2024 TSH TSH TNP uIU/m L [facility] was unabl e to colle ct suffi cient speci men to perfo rm the follo wing test( s), and is provi ding the patie nt with re-co llect ion instr uctio ns. Not Available [facility] ([facility]) [address] [place], [address], 01/20/2024 16:06:46 01/16/20 24 01/20/[address] PROBL EM request problem TNP [facility] was unabl e to colle ct suffi cient speci men to perfo rm the follo wing test( s), and is provi ding the patie nt with re-co llect ion instr uctio ns. TEST: 91275 0 Comp. Metab olic Panel (14) 57259 6 Lipid Panel 36563 4 Thyro xine (T4) Free, Direc t 20620 9 TSH Not Available [facility] ([facility]) [address] [place], [address], 01/20/2024 16:06:47 01/16/20 24 01/20/[address] PROBL EM request problem COMMEN T Test not perfo rmed. Patie nt was unabl e to provi de a self- colle cted speci men for the reque sted testi ng. The follo wing test( s) were not perfo rmed: TEST: 33722 5 Album in/Cr eatin ine Ratio ,Urin e Not Available [facility] ([facility]) [address] [place], [address], 01/20/2024 16:06:47 01/16/20 24 01/20/[address] PROBL EM request problem TNP [facility] was unabl e to colle ct suffi cient speci men to perfo rm the follo wing test( s), and is provi ding the patie nt with re-co llect ion instr uctio ns. TEST: 22722 3 Hemog lobin A1c Not Available [facility] ([facility]) [address] [place], [address], 01/20/2024 16:06:48 01/18/20 24 01/19/2024 COMP. METAB OLIC PANEL (14) glucose 131 mg/dL 70-99 above high normal Not Available [facility] ([facility]) [address] [place], [address], 01/19/2024 20:06:24 01/18/20 24 01/19/2024 COMP. METAB OLIC PANEL (14) BUN 10 mg/dL 6-24 normal Not Available [facility] ([facility]) [address] [place], [address], 01/19/2024 20:06:24 01/18/20 24 01/19/2024 COMP. METAB OLIC PANEL (14) creatinine 0.76 mg/dL 0.57-1 .00 normal Not Available [facility] ([facility]) [address] [place], [address], 01/19/2024 20:06:24 01/18/20 24 01/19/2024 COMP. METAB OLIC PANEL (14) eGFR 91 mL/mi n/1.7 3 >59 normal Not Available [facility] ([facility]) [address] [place], [address], 01/19/2024 20:06:24 01/18/20 24 01/19/2024 COMP. METAB OLIC PANEL (14) BUN/creatini ne ratio 13 9-23 normal Not Available [facility] ([facility]) [address] [place], [address], 01/19/2024 20:06:24 01/18/20 24 01/19/2024 COMP. METAB OLIC PANEL (14) sodium 138 mmol/ L 134-14 4 normal Not Available [facility] ([facility]) [address] [facility] [place], [address], 01/19/2024 20:06:24 01/18/20 24 01/19/2024 COMP. METAB OLIC PANEL (14) potassium 4.0 mmol/ L 3.5-5. 2 normal Not Available [facility] ([facility]) [address] [facility] [place], [address], 01/19/2024 20:06:24 01/18/20 24 01/19/2024 COMP. METAB OLIC PANEL (14) chloride 99 mmol/ L 96-106 normal Not Available [facility] ([facility]) [address] [facility] [place], [address], 01/19/2024 20:06:24 01/18/20 24 01/19/2024 COMP. METAB OLIC PANEL (14) carbon dioxide, total 21 mmol/ L 20-29 normal Not Available [facility] ([facility]) [address] [facility] [place], [address], 01/19/2024 20:06:24 01/18/20 24 01/19/2024 COMP. METAB OLIC PANEL (14) calcium 9.6 mg/dL 8.7-10 .2 normal Not Available [facility] ([facility]) [address] [facility] [place], [address], 01/19/2024 20:06:24 01/18/20 24 01/19/2024 COMP. METAB OLIC PANEL (14) protein, total 6.4 g/dL 6.0-8. 5 normal Not Available [facility] ([facility]) [address] [facility] [place], [address], 01/19/2024 20:06:24 01/18/20 24 01/19/2024 COMP. METAB OLIC PANEL (14) albumin 4.5 g/dL 3.8-4. 9 normal Not Available [facility] ([facility]) [address] [facility] [place], [address], 01/19/2024 20:06:24 01/18/20 24 01/19/2024 COMP. METAB OLIC PANEL (14) globulin, total 1.9 g/dL 1.5-4. 5 Not Available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 diverticular bleed. Mom doing OK; getting botox for eyes. Mom got COVID too. Jos in same house. 10/31: Mom- back to vomiting/diarrhea. 05/01: No major changes. Jos and mom doing well. Medical History Condition Response Diabetes Type II Y Thyroid Disease Y Gynecological HistoryNo gynecological history recorded. Obstetrics History GPAL:G 0 P 0 0 0 0 Immunizations Vaccine Type Date Status Note Provider Nam e and Address Organization Details Recorded Time Influenza, split virus, quadrivalent, PF 6 completed Not Available [facility] 02/26/2019 02:27:41 Influenza, split virus, quadrivalent, PF 7 completed Not Available [facility] 02/26/2019 02:35:44 Influenza, split virus, quadrivalent, preservative 9 completed Not Available [facility] 03/16/2023 10:21:37 Influenza, split virus, quadrivalent, preservative 0 completed Not Available [facility] 03/16/2023 10:21:36 COVID-19, mRNA, LNP-S, PF, 100 mcg/0.5mL dose or 50 mcg/0.25mL dose 1 completed Not Available [facility] 03/16/2023 10:21:37 COVID-19, mRNA, LNP-S, PF, 100 mcg/0.5mL dose or 50 mcg/0.25mL dose 1 completed Not Available [facility] 03/16/2023 10:21:37 COVID-19, mRNA, LNP-S, PF, 100 mcg/0.5mL dose or 50 mcg/0.25mL dose 1 completed Not Available [facility] 03/16/2023 10:21:37 COVID-19, mRNA, LNP-S, PF, 100 mcg/0.5mL dose or 50 mcg/0.25mL dose 2 completed Not Available [facility] 03/16/2023 10:21:37 Past Encounters Encounter ID Performer Location Encounter Start Date Encounter Closed Date Diagnosis/Indication Diagnosis SNOMED-CT Code Diagnosis ICD10 Code Diagnosis Note [id number] [facility], [address] [address] 06/05/2010 16:33:18 06/06/2010 09:05:25 [id number] [facility], [address] [address] 03/05/2011 17:27:10 03/06/2011 08:50:03 [id number] Cailin Valencia LPN [facility], [address] [address] 08/20/2011 17:31:52 08/21/2011 07:11:55 [id number] Cailin Valencia LPN [facility], [address] [address] 03/12/2012 15:29:53 03/12/2012 17:52:39 [id number] Fazal Robles RN DM Education , [facility] [address] [place] [address] 08/04/2012 14:12:16 08/04/2012 15:47:38 [id number] Fazal Robles RN DM Education , [facility] [address] [place] [address] 08/26/2012 15:14:20 08/26/2012 16:32:41 [id number] Loraine Mota [facility], [address] [address] 10/06/2012 17:30:08 10/07/2012 09:19:04 Uncontrolled type 2 diabetes mellitus [id number] a1c still up over 9% with transition to insulin. right now on 20 lantus and still on glip 10 bid, metformin and Januvia. Keep AM Lantus at 20 (back from vacation, BG later in day are 100-180) but add dinner (doesn't matter pre or post for lantus) dose of 5 units to see if can bring AM values down from consistent ly being over 120. Mixed hyperlipidemia [id number] Has tried other statins with difficulty but was doing OK on low dose fluvastati n (20) until recently. Now back to having leg cramps. Lipid profile at goal. Encouraged her to try taking QOD to see if leg cramps are less. If able to tolerate and if lipids worsen on TIS, may consider increase to 40 mg dose TIS. LDL at goal on 20 qd. She is also using fish oil and flax seed to bring down. If she doesn't reach goal, might consider either zetia or welchol which should give myalgias. HDL surprising ly good at 46. Hypothyroidism 97187312 On 125 generic. TSH stable- Continue on 125 generic and check TFTs every 3 months. Obstructiv e sleep apnea syndrome 89246310 on CPAP and uses it. [id number] [facility], [facility] [address] [place] [address] 10/29/2012 15:59:01 10/29/2012 16:55:41 Uncontrolled type 2 diabetes mellitus [id number] -increase lantus to 20units in the am and 12units in the pm - continue metformin, glipizide 10mg 2x/d, januvia 100mg daily Mixed hyperlipidemia 276045532 Has tried other statins with difficulty but was doing OK on low dose fluvastati n (20) until recently. Now back to having leg cramps. Lipid profile at goal. Encouraged her to try taking QOD to see if leg cramps are less. If able to tolerate and if lipids worsen on TIS, may consider increase to 40 mg dose TIS. LDL at goal on 20 daily of fluvastati n. She is also using fish oil and flax seed to bring down. If she doesn't reach goal, might consider either zetia or welchol which should give myalgias. HDL surprising ly good at 46. Hypothyroidism [id number] On levothyrox ine 125 generic. TSH stable at 0.95 Obstructiv e sleep apnea syndrome 52519977 on CPAP and uses it. Vitamin D deficiency 95329441 -vitamin d 1000units daily Essential hypertension 55967741 -lisinopri l 10mg daily [id number] Jillian Garcia [facility], [facility] [address] [place] [address] 12/31/2012 15:59:37 12/31/2012 17:32:48 Uncontrolled type 2 diabetes mellitus 285140142 -increase lantus to 36units subcut once daily - continue metformin 750mg 2x/d, glipizide 5mg 2x/d, januvia 100mg daily Mixed hyperlipidemia 648167118 -continue fluvastati n Hypothyroidism 81112078 -levothyro xine 125mcg daily Obstructiv e sleep apnea syndrome 10682109 on CPAP and uses it. Vitamin D deficiency 01033944 -vitamin d 1000units daily Essential hypertension 95101623 -lisinopri l 5mg daily [id number] Cailin Valencia LPN [facility], [facility] [address] [place] [address] 03/01/2013 16:55:27 03/02/2013 09:05:03 Uncontrolled type 2 diabetes mellitus [id number] a1c still up over 9% with transition to insulin. Right now on 38 lantus and glipizide (5mg down from 10 bid), metformin (750 bid ) and Januvia. Keep AM Lantus at 38 but may need to go up higher- wrote Rx for 45-50. Try PM glipizide 10 mg to see if can get AM values to goal. Continue metformin and Januvia. Consider change Januvia for Incretin option to promote weight loss. Hypoglycem ia becoming a more significan t issue- sx come on rapidly without much warning. Rx for glucagon pen. Hypothyroidism [id number] On 125 generic. TSH stable- Continue on 125 generic and check TFTs every 3 months. Mixed hyperlipidemia [id number] Has tried other statins with difficulty but was doing OK on low dose fluvastati n (20). Tolerating current dose. Lipid profile at goal. LDL at goal on 20 qd. She is also using fish oil and flax seed to bring down. Given recent evidence, she does not have to continue fish oil. For now, flax seed may be helful. If she doesn't reach goal, might consider either zetia or welchol which should give myalgias. HDL has gone up likely due to her great efforts at exercise. Now at 52. Obstructiv e sleep apnea syndrome 58401223 on CPAP and uses it. Essential hypertension 98074757 on small dose of lisinopril . (5) [id number] [facility], [address] [address] 05/25/2013 16:59:52 05/27/2013 09:43:31 Hypothyroidism 91835292 On 125 generic. TSH stable- Continue on 125 generic and follow TFTs. Uncontroll ed type 2 diabetes mellitus 708323426 a1c still better at 7.5% from 7.9% and was up over 9%. Right now on 38 lantus and glipizide (10mg at HS down from 10 bid), metformin (750 bid ) and Januvia. Keep AM Lantus at 38-40 but may need to go up higher in the future (wrote Rx for 45-50). If exercises in PM and starts having lows during the night, decrease PM glipizide from 10 mg to 5 mg - can even go off HS glipizide if still has lows overnight. If AM values remain over 140 even with exercise, may need to try increasing lantus or switch from glipizide to small dose of PM lantus. Continue metformin and Januvia. Consider change Januvia for Incretin option to promote weight loss. Hypoglycem ia becoming a more significan t issue- sx come on rapidly without much warning. Gave her Rx for glucagon pen last time but pt. says never came from [facility]. Mixed hyperlipidemia [id number] Pretty clear that she can't tolerate statins but LDL is not at goal- 115. Has tried other statins with difficulty but was doing OK on low dose fluvastati n (20). Was tolerating until recently- less myalgias after stopping it. Lipid profile not at goal. LDL not at goal. If she doesn't reach goal, might consider either zetia or welchol which should give myalgias. HDL had previously gone up (likely due to her great efforts at exercise). Still in 50's. Obstructiv e sleep apnea syndrome 65408750 on CPAP and uses it. Essential hypertension 08290749 PCP stopped ERIC-I because of low BP (originall y started for high BP). BP is back up now- repeat by me = 144/92 with normal cuff but 138/88 with large cuff (both on left arm). She is hoping to start back to exercise so might be worth following. If persists, could consider either 12.5 of HCTZ or 2.5 mg lisinopril (was on 5 mg in past). [id number] Airam Angulo [facility], [address] [address] 12/21/2013 16:56:21 04/20/2014 09:58:36 Uncontrolled type 2 diabetes mellitus 593281549 a1c about the same (7.6 and was 7.5) - has been on steroids since then (only 5 days). Asking about possible contributi on of meds to being hungry 2-3 hours after dinner (and exercise). Usually expect more from short acting insulin but glipizide might contribute . Also asking about changing over to all insulin. Could certainly do that. Seeing Liyah Garcia- raising question of weight gain with insulin and OKEEFE. Discussed options of switching to all insulin regimen. 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 She will contact [facility] about cost of byetta vs. victoza. If able to start either of those, will look to stop Januvia and hopefully decrease glipizide. Hypothyroidism 75733055 on 125 of generic T4. TFTs OK in 10/2013. Obstructiv e sleep apnea syndrome 42905634 on CPAP and uses it. Essential hypertension 25435372 PCP stopped ERIC-I because of low BP (originall y started for high BP). BP is back up here today but she reports normal values at other offices. Encourage close f/u- she has access to one - encourage her to check BP at home a few times. If persists, could consider either 12.5 of HCTZ or 2.5 mg lisinopril (was on 5 mg in past). [id number] Cailin Valencia LPN [facility], [address] [address] 04/19/2014 16:56:16 04/20/2014 10:16:08 Uncontrolled type 2 diabetes mellitus [id number] 04/2014: On Lantus 40, glipizide and metformin and victoza 1.2. However also on prednisone (3 courses of five days over past few months- around 40 and tapering) See scanned record of recent sugars. A1c continues to go up- now at 7.9% but hard to say how much is from ongoing steroid contributi on. Has gotten some benefit when uses glipizide and cinnamon at night (on AM sugars). And even has seen some lows in the AM. But generally has higher sugars at HS (presumabl y from impact of dinner). Increase victoza to 1.8. Hope to see sugars better towards HS. Still seeing Liyah Garcia. Thought taking insulin at night might be better. Discussed idea of not wanting lantus to wear off after 16-18 hours (would be pre-dinner ). Hypothyroidism 21239925 on 125 of generic T4. TFTs OK Monitor labs and respond prn. Prednisone adverse reaction [id number] Impacting blood sugars and doesn't seem to be helping pulmonary status (coughing and feeling of sinus infection) Obstructiv e sleep apnea syndrome 26112210 on CPAP and uses it. On examina tion - maxillary sinus tenderness [id number] Natalia Cuevas [facility], [address] [address] 09/06/2014 16:58:20 09/06/2014 17:59:53 Uncontrolled type 2 diabetes mellitus 676107811 On Lantus 40 AM, glipizide (10 mg HS) and metformin (750 bid) and victoza 1.8. low today but that was due to taking 5 mg glip in AM (woke up high and thought it would bring down). Discussed timing and duration of glipizide and problems taking extra pill. Labs pending from recent draw. Was at 7.9% but was on steroids at the time. Doing more walking and hope to see that having positive impact as well. Still seeing Liyah Garcia monthly. Hypothyroidism 59214831 on 125 of generic T4. TFTs OK Monitor labs and respond prn. Obstructiv e sleep apnea syndrome 98964795 on CPAP and uses it. Mixed hyperlipidemia 833755879 Pretty clear that she can't tolerate statins- LDL has not been at goal- 103 in 02/23. Has tried other statins with difficulty . Even tried low dose fluvastati n (20) but had myalgias again- less myalgias after stopping it. Filled Rx for Crestor from PCP- he suggested starting at just 5 mg one tablet per week. I suspect she may likely develop myalgias again on Crestor but OK to try. In meanwhile, stay on plant sterol preparatio n (CholestOf f). If she doesn't reach goal, would consider either zetia or welchol which should not give myalgias. HDL had previously been down (28 in 02/2014)- may be better with recent walking efforts (had been up to 50's). [id number] Cailin Valencia LPN [facility], [address] [address] 03/07/2015 16:56:16 03/08/2015 09:34:05 Uncontrolled type 2 diabetes mellitus [id number] E11.65 On Lantus 45 AM, glipizide (10 mg HS) and metformin (750 bid) and victoza 1.8. a1c up to 8.3%. Would like to have her switch to Toujeo to see if more consistent and longer duration could help. Will give her 2 pens of Toujeo at 50 units per day. See if AM sugars improve. If they do, will send Rx. If Toujeo not covered or no change, may have her use up Lantus (just refilled) by splitting and giving 35-0-15-0. Not as active and eating out more- need to emphasize lifestyle efforts. Still seeing Liyah Jose monthly. Hypothyroidism 64576062 E03.9 on 125 of generic T4. TFTs OK Monitor labs and respond prn. Active or passive immunization [id number] Z23 Mixed hyperlipidemia 267 485874 E78.2 Pretty clear that she can't tolerate statins- LDL has not been at goal- 129 (02/24)- had been down to 103 in 02/23. Even tried low dose fluvastati n (20) but had myalgias again- less myalgias after stopping it. Also on Crestor at 2-3 per week. Encourage her to use plant sterol preparatio n (CholestOf f). OK to try 3 tabs BID. If she doesn't reach goal, would consider either zetia or welchol which should not give myalgias. HDL had previously been down (28 in 02/2014)- may be better with recent walking efforts (had been up to 50's). Obstructiv e sleep apnea syndrome 32291324 G47.33 on CPAP and uses it. [id number] Christina Funk [facility], [address] [address] 07/18/2015 16:51:04 07/20/2015 11:00:13 Uncontrolled type 2 diabetes mellitus 401389205 E11.65 On Lantus 51 AM and 10-12 at HS. Using less glipizide (very little in past 2 weeks- 5mg or none- was on 10 mg HS) and metformin (750 bid) and victoza 1.8. Still seeing Liyah Coxl monthly- she wants to see if patient loses weight off OKEEFE. a1c up to 8.5%. Couldn't get Toujeo covered unless over 150 units. Waiting to complete process to see if Trulicity could be covered. Although a1c is 8.5%, meter download looks much better with average glucose closer to 140-150. So a1c may start to come down. Will wait to see next a1c (10/25) to decide on bigger dose adjustment s. To try and see if she can lose weight off glipizide (I'm not sure OKEEFE that much different than Lantus), will suggest she try increasing PM Lantus by 2 units every 2 days while staying off of glipizide (can do 3 units every 3 days as another option). But if any problems or no change in weight after 2-3 weeks, can always come back to using 10-12 units with 5mg glipizide as PM dose. Hypothyroidism 56161893 E03.9 on 125 of generic T4. TFTs OK Monitor labs and respond prn. Mixed hyperlipidemia 267 450038 E78.2 Pretty clear that she can't tolerate statins- LDL has not been at goal- 129 (02/24)- had been down to 103 in 02/23. Even tried low dose fluvastati n (20) but had myalgias again- less myalgias after stopping it. Also on Crestor at 2-3 per week. Encourage her to use plant sterol preparatio n (CholestOf f). OK to try 3 tabs BID. If she doesn't reach goal, would consider either zetia or welchol which should not give myalgias. HDL had previously been down (28 in 02/2014)- may be better with recent walking efforts (had been up to 50's). If nothing helps, may try and consider PCSK9 inhibitor. Obstructiv e sleep apnea syndrome 11600698 G47.33 on CPAP and uses it. Heartburn 37265007 R12 chronic but some worsening of sx. Encourage her to f/u with PCP and GI. [id number] Travis Bright MD [facility], [address] [address] 02/20/2016 17:03:01 02/21/2016 07:32:04 Uncontrolled type 2 diabetes mellitus 919202764 E11.65 a1c is 8.3; Metformin and VictozaAls o Lantus 55-65 AM and 15-25 at HS.She is back to using glipizide 10 at HS and 5-10 in AM Highs more in past few days with recent stress of mom having seizure evaluation . Stay on consistent doses of insulin: 65 Lantus in AM and 20 Lantus in PM. If starts having lows in AM, can decrease PM Lantus. If starts having lows in PM, decrease AM Lantus to 60.Stay on glipizide 10 bid.Contin ue metformin and Victoza. Hypothyroidism 06812479 E03.9 on 125 of generic T4. TFTs OK Monitor labs and respond prn. Mixed hyperlipidemia 267 897495 E78.2 Cannot tolerate statins- LDL better in 07/2015- may be due to Cholestoff .In past, tried low dose fluvastati n (20) but had myalgias again- less myalgias after stopping it.Also happened on Crestor at 2-3 per week. Encourage her to keep using plant sterol preparatio n (CholestOf f). If LDL still high, can consider either zetia or welchol which should not give myalgias. HDL had previously been down (28 in 02/2014). Heartburn 73603734 R12 chronic but some worsening of sx. Encourage her to f/u with PCP and GI. Obstructiv e sleep apnea syndrome 98917330 G47.33 On CPAP and uses it. Insulin tr eated type 2 diabetes mellitus 751867234 Z79.4 Increases complexity . [id number] Travis Bright MD [facility], [address] [address] 06/27/2016 08:40:52 06/27/2016 09:39:38 Uncontrolled type 2 diabetes mellitus 826869508 E11.65 a1c is 8.3; Metformin and VictozaOn Lantus 65 AM and 30 (recent increase) at HS.She also using glipizide 10 BID Increase insulin: 70 Lantus in AM and 30 Lantus in PM.Couldn' t get Toujeo covered unless over 150 units. Can come off glipizide 10 bid but if not having a problems, can stay on also. Sees Liyah Gasca ue metformin and Victoza. 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 Hypothyroidism 54349666 E03.9 on 125 of generic T4. TFTs OK Monitor labs and respond prn. Insulin tr eated type 2 diabetes mellitus 085210977 Z79.4 Increases complexity . Mixed hyperlipidemia 267 642186 E78.2 Cannot tolerate statins- LDL better in 07/2015- may be due to Cholestoff .In past, tried low dose fluvastati n (20) but had myalgias again- less myalgias after stopping it.Also happened on Crestor at 2-3 x per week. Encourage her to keep using plant sterol preparatio n (CholestOf f). Would like to see if zetia or welchol covered which should not give myalgias. Heartburn 66347256 R12 Chronic but some worsening of sx with chest pain up to neck and ear. Encourage her to f/u with PCP and GI. Obstructiv e sleep apnea syndrome 05381917 G47.33 On CPAP and uses it. Has old machine and seems to be having trouble updating. Needs to get new test. Encourage her to arrange. She notes difference in sugars when gets better sleep. [id number] Travis Bright MD [facility], [address] [address] 12/02/2016 16:21:36 12/02/2016 17:34:15 Uncontrolled type 2 diabetes mellitus 720165858 E11.65 A1c = 7.6 (11/25) on 4 meds: metformin/ glipizide/ lantus (70am and 30pm)/vict gualberto (1.8). Meter download looks good with few higher values after dinner. Has had problems with n/v (likely GB) and so isn't eating as much. Will likely be seeing surgeon. Hypothyroidism 70673632 E03.9 On 125. tsh (11/25)= 0.98 Active or passive immunization [id number] Z23 2017 Insulin tr eated type 2 diabetes mellitus 226863458 Z79.4 Increases complexity . Mixed hyperlipidemia 267 616447 E78.2 Cannot tolerate statins- LDL better in 11/25 after being put on ezetimibe with continued use of CholestOff (since 07/2015). In past, tried low dose fluvastati n (20) but had myalgias again- less myalgias after stopping it.Also happened on Crestor at 2-3 x per week. Encourage her to keep zetia- she reports plant sterol preparatio n (CholestOf f) is expensive- OK to d/c and repeat lipid panel to see if zetia is sufficient to acheive goals. Heartburn [id number] R12 Chronic and seems to be related to GB. Encourage f/u re: GB. Has referral to see surgeon (Chan) Obstructiv e sleep apnea syndrome [id number] G47.33 On CPAP and uses it. Got new machine 10/26. [id number] Travis Bright MD Endocrino logy, [address] [address] 03/04/2017 17:19:56 03/05/2017 15:52:11 Uncontrolled type 2 diabetes mellitus [id number] E11.65 A1c = 7.6 (11/25) on 4 meds: metformin/ glipizide/ lantus (70 am and 30 pm)/victoz a (1.8).Some times adjusts HS Lantus but still has some lows early AM. But also has snack and it can be earlier or later in evening. And sometimes takes glipizide and sometimes not. All these make understand ing her values extremely complex. Also meter download confusing based on time she recalls sugars and what time is on logbook. (e.g., values on download 2-5AM and she says she's not up and doesn't check. Intake affected because of problems with constipati on (s/p GB) and wasn't eating much but back to usual diet now. Not sure glipizide helping much in patient taking nearly 100 units per day. Would like to avoid lows overnight or early AM (she reports a few )Try changing HS lantus. Instead of 30 or 15 (based on sugar), take 25 (over 140) and 15 if under 140.Only take glipizide if having late snack. Request that she keep log 2 weeks before next visit.time s of day and doses and comments about using glipizide (G), or snack (S) to provide more informatio n. Hypothyroidism 86709561 E03.9 On 125. tsh (11/25)= 0.98Clinic ally doing well. Follow labs and adjust dose prn. Goal is to have TSH in normal range. Mixed hyperlipidemia 267 863686 E78.2 Cannot tolerate statins- LDL better in 10/17 after being put on ezetimibe with continued use of CholestOff (since 07/2015). Recently stopped sterol preparatio n after GB surgery. Encourage her to stay on zetia- she reports plant sterol preparatio n (CholestOf f) is expensive- OK to d/c and repeat lipid panel to see if zetia is sufficient to achieve goals. Obstructiv e sleep apnea syndrome [id number] G47.33 On CPAP and uses it. New machine more comfortabl e- need to see if helps sleep. Insulin tr eated type 2 diabetes mellitus [id number] Z79.4 Increases complexity . [id number] Travis Bright MD [place]ocrino logy, [facility] [place] [address] [place] [address] 07/22/2017 17:14:35 07/24/2017 07:08:50 Uncontrolled type 2 diabetes mellitus [id number] E11.65 A1c = 7.6 (11/25) on 4 meds: metformin/ glipizide/ lantus (70 am and 30 pm)/victoz a (1.8). Sometimes eliminates HS Lantus if BG closer to 125 because concerned about lows.On meter, when she's done this, next AM BG are OK.Some highs in AM but often didn't check night before so not clear why highs happen in AM. No lows early AM. But had some pre-lunch. Mostly when she was more active on vacation. All these make understand ing her values extremely complex. Not sure glipizide helping much in patient taking nearly 100 units per day. Had suggested changing HS lantus. Instead of 30 or 15 (based on sugar), take 25 (over 140) and 15 if under 140. But she has had trouble rememberin g Also having trouble with supper meds (glipizide , metformin) . Suggest use phone for alarm for supper meals. And try increasing AM lantus to 75 and decreasing PM lantus to 25. She may need something more to help at dinnertime . Hypothyroidism 18905363 E03.9 On 125. tsh= 1.22 (02/26); OK in 11/25= 0.98Clinic ally doing well. Follow labs and adjust dose prn. Goal is to have TSH in normal range. Mixed hyperlipidemia 267 768906 E78.2 Cannot tolerate statins- LDL better in 11/25 after being put on ezetimibe with continued use of CholestOff (since 07/2015). Recently stopped sterol preparatio n after GB surgery. Encourage her to stay on zetia- she reports plant sterol preparatio n (CholestOf f) is expensive- OK to d/c and repeat lipid panel to see if zetia is sufficient to achieve goals. Obstructiv e sleep apnea syndrome [id number] G47.33 On CPAP and uses it. New machine more comfortabl e- need to see if helps sleep. Insulin tr eated type 2 diabetes mellitus 737581611 Z79.4 Increases complexity . Gastroesop hageal reflux disease 791326507 K21.0 Needs refill [id number] YUMIKO FrenchN Endocrino logy, [address] [address] 07/28/2017 17:37:51 07/29/2017 07:20:09 Uncontrolled type 2 diabetes mellitus [id number] E11.65 [id number] Cailin Valencia LPN Endocrino logy, [address] [address] 08/05/2017 17:35:58 08/06/2017 07:06:24 Uncontrolled type 2 diabetes mellitus [id number] E11.65 [id number] Travis Bright MD Endocrino logy, [address] [address] 02/03/2018 17:15:37 02/04/2018 07:03:11 Hypothyroidism 56791741 E03.9 On 125. tsh= 1.22 (02/26); OK in 11/25= 0.98Clinic ally doing well. Follow labs and adjust dose prn. Goal is to have TSH in normal range. Uncontroll ed type 2 diabetes mellitus 580239068 E11.65 A1c = 8.2 (11/26); was 7.6 (11/25) on 4 meds: metformin/ glipizide/ lantus (75-0-0-[2 5-30]; was 70 am and 30 pm)/victoz a (1.8). Sugars higher now while on steroids. Finished steroids 2 days ago. Lows when took glipizide with 43 units at night. Increase AM Lantus to 80 but keep PM dose at 25-30. Stay on 5 mg bid glipizide (if HS BG < 120, OK to skip HS glipizide) . Not sure glipizide helping much in patient taking about 100 units per day but she had low when used extra Lantus at HS with glipizide. If AM sugars remain high, may want to try and increase glipizide at HS. Also having trouble with supper meds (metformin ). Suggest use phone for alarm for supper meds (metformin ). And try increasing AM lantus to 80 and keep PM lantus at 25-30. Meter download suggests higher values at night but she was on steroids. Also, not clear what is happening overnight since she has varied insulin dose and glipizide dose on a few occasions. Tried once before to assess patterns with CGM (pro) but it came off because she was in pool frequently (summer). Try again and have her stay away from hot tub (winter). Mixed hyperlipidemia 267 141685 E78.2 Cannot tolerate statins- LDL better in 2018 after being put on ezetimibe with continued use of CholestOff (since 07/2015). Recently back on sterol preparatio n (was off after GB surgery). Encourage her to stay on zetia and mostly taking sterol preparatio n (CholestOf f) - was on at time of labs- off x 2 weeks (ran out) Obstructiv e sleep apnea syndrome 47617744 G47.33 On CPAP and uses it. New machine more comfortabl e- need to see if helps sleep. Insulin tr eated type 2 diabetes mellitus 909689821 Z79.4 Increases complexity . Asthma 990871359 J45.90 9 With recent steroid tx- impacts BG control and insulin sensitivit y and therefore complexity . Folliculitis 71041368 L7 3.9 Left axilla. Not shaving underarms. May be related to recent steroids.S uggest start with conservati ve tx ( hot packs)- if not improving by 7-10 days, call either here or PCP and consider course of Keflex. [id number] Travis Bright MD Endocrino logy, [address] [address] 02/18/2018 10:11:22 02/18/2018 10:49:37 [id number] Travis Bright MD Endocrino logy, [address] [address] 02/24/2018 20:14:43 03/01/2018 06:47:49 Uncontrolled type 2 diabetes mellitus [id number] E11.65 02/2018: Continuous glucose monitor report detailed above. A1c = 8.2 (11/26); was 7.6 (11/25) on 4 meds: metformin/ glipizide/ lantus (75-0-0-[2 5-30]; was 70 am and 30 pm)/victoz a (1.8). Lows when took glipizide with 43 units at night. Increase AM Lantus to 80 but keep PM dose at 25-30. Stay on 5 mg bid glipizide (if HS BG < 120, OK to skip HS glipizide) . Not sure glipizide helping much in patient taking about 100 units per day but she had low when used extra Lantus at HS with glipizide. If AM sugars remain high, may want to try and increase glipizide at HS. Also having trouble with supper meds (metformin ). Suggest use phone for alarm for supper meds (metformin ). And try increasing AM lantus to 80 and keep PM lantus at 25-30. [id number] Travis Bright MD Endocrino logy, [address] [address] 03/18/2018 09:16:13 03/18/2018 16:43:11 Uncontrolled type 2 diabetes mellitus [id number] E11.65 03/2018: Continuous glucose monitor report reviewed and showed patient images. Options:- Make very serious changes in diet (especiall y dinner) but we discussed reality of her life and circumstan serjio- Push hard to take glipizide at dinner time but prolonged highs suggest it may not be working as well as necessary. - Start short-acti ng insulin at dinner She agrees to this. Start with:Low carb meal: 4 units.Medi um carb meal: 6 unitsHigh carb meal: 8 units. If sugar is over 250 at dinner, give an extra 2 units. Also requesting Rx for depth shoes for her diabetes. Orthotic shoes aren't fitting in regular shoes and she has plantar fasciitis. Review of past:A1c = 8.2 (11/26); was 7.6 (11/25) on 4 meds: metformin/ glipizide/ lantus (75-0-0-[2 5-30]; was 70 am and 30 pm)/victoz a (1.8). Lows when took glipizide with 43 units at night. [id number] Travis Bright MD Endocrino logy, [facility] [address] [place] [address] 08/19/2018 11:17:08 08/19/2018 14:03:35 Uncontrolled type 2 diabetes mellitus 570125274 E11.65 Start with: she increased scale to 8-10 units based on CHO content of meal.If sugar is over 250 at dinner, give an extra 2 units. Go up to 10-14 units of Humalog with dinner.If gets to goal of 180 by HS, can consider dropping Lantus to 20-25 units. Lows when took glipizide with 43 units at night. Insulin tr eated type 2 diabetes mellitus 023669409 Z79.4 Increases complexity . [id number] Travis Bright MD Endocrino logy, [facility] [address] [place] [address] 02/24/2019 13:02:30 03/01/2019 06:23:48 Uncontrolled type 2 diabetes mellitus [id number] E11.65 High a1c of 8.9 in 02/28.On Lantus: 80-0-0-(25 -36)Humalo g- mostly at dinner. Occ lunch and bkfst if high.Using 12-16 units at dinner. Victoza, Metformin and glipizide. [facility] is now covering Toujeo with prior auth.Cassius WELLS sx which may be related to Victoza.[place] ggest stop for now. Switch to Toujeo and try Trulicity. Toujeo- start at 100 units.Trtomas eaton at 0.75 Would like to have her try using stable dose of Lantus at night until we get her on Toujeo. In past, Rx for depth shoes for her diabetes. Orthotic shoes aren't fitting in regular shoes and she has plantar fasciitis. Review of past:A1c = 8.2 (11/26); was 7.6 (11/25) on 4 meds: metformin/ glipizide/ lantus (75-0-0-[2 5-30]; was 70 am and 30 pm)/victoz a (1.8). Lows when took glipizide with 43 units at night. RN visit in 2 weeks. Expect likely will increase Toujeo Insulin tr eated type 2 diabetes mellitus 111304065 Z79.4 Increases complexity . Obesity 129655973 E66.9 Integrated nutrition visit w/ Annemarie Black nutritioni st 02/24/19. Winnie sees nutritioni [facility] regularly and has not been to see Guera Alston for Diabetes Ed. A1C high at 8.2 and med changes are being rx'd today that she wishes to see how will impact her BG before seeking additional diabetes ed consultati on. 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 States has typically at breakfast 2 eggs and 1/2 banana or strawberri es, and that BS may spike after this. Wondering about having fruit vs a piece of whole grain toast w/ eggs and unsure if needs to D/C fruit due to glycemic impact. Also reports feeling low BS sometimes mid-AM and having a snack, but unclear how much carb to consume at that time. Relays that pizza, pasta, and mashed potatoes always spike her sugar for extended period.-Us ed to have sandwich at lunch and is trying to D/C bread and have just veg and deli meat, but not feeling satisfied from this. Suggested she try 15 gm or less bread product if having sandwich like [employer] lower carb wraps or mini whole wheat pitas.-Enc ouraged her to increase protein at breakfast - Lebanese yogurt (low sugar type like Chobani 'less sugar' as she disliked stevia flavor of Light 'n Fit type), or peanut butter on apple or banana. Try to see if no fruit and subbing in whole grain bread effects BG after breakfast. To try mixing half plain or vanilla yogurt 1 Tbsp with 1 Tbsp peanut butter with apples.-Re minded re: need for protein such as cheese, nuts or seeds or nut butter or HB egg with mid-AM snack- along with about 15 gm carb (cheese and crackers, fruit and nuts, pb and rice cakes, etc.)-Enco uraged to keep a food and BG log and provided blank forms for 2 weeks for her to record everything she is eating/dri nking along w/ BG, to better see patterns.- Handout given on Dining out with Diabetes. Often feels she overeats. Will try getting takeout box at start of the meal to transfer half of food before eating -- to lower risk of overeating w/ meals.-We have not been receiving reports from nutritioni st Liyah Garcia who she sees; asked her if she could request that Liyah send copies of nutrition consult reports to [facility]. Ideally [facility] will also send brief visit summaries to her as well (DA added ND to care team today). Obesity code utilized and obesity was added to problem list (BMI 37). Dyslipidem ia due to type 2 diabetes mellitus [id number] 02 E78.5 182/172/57 /91 (direct= 110);Side effects to statins including Leg cramps on rosuvastat in- even tried fluvastati n but could not tolerate Had been on CholestOff but went off when ran out. Suggest she restart CholestOff . [id number] Nae Mccall RN BSN Endocrino logy, [address] [address] 03/10/2019 09:57:30 03/10/2019 11:45:10 Uncontrolled type 2 diabetes mellitus 819461984 E11.65 03/2018: Continuous glucose monitor report reviewed and showed patient images. Options:- Make very serious changes in diet (especiall y dinner) but we discussed reality of her life and circumstan serjio- Push hard to take glipizide at dinner time but prolonged highs suggest it may not be working as well as necessary. - Start short-acti ng insulin at dinner She agrees to this. Start with:Low carb meal: 4 units.Medi um carb meal: 6 unitsHigh carb meal: 8 units. If sugar is over 250 at dinner, give an extra 2 units. Also requesting Rx for depth shoes for her diabetes. Orthotic shoes aren't fitting in regular shoes and she has plantar fasciitis. Review of past:A1c = 8.2 (11/26); was 7.6 (11/25) on 4 meds: metformin/ glipizide/ lantus (75-0-0-[2 5-30]; was 70 am and 30 pm)/victoz a (1.8). Lows when took glipizide with 43 units at night. [id number] Travis Bright MD Endocrino logy, [facility] [address] [place] [address] 04/07/2019 09:59:22 04/07/2019 11:35:01 Uncontrolled type 2 diabetes mellitus [id number] E11.65 04/07/19Pat ient arrives for CGM download and review of medication and dietary changes. She reports she has made some dietary changes; cooking more, eating out less and being aware of how many carbs require more insulin. She has been taking Toujeo 100 units in the morning, Glipizide 5mg now with dinner and her Humalog at dinner time accordingl y; low carb 14 units, med carb 18 units, high carb 20 units, as well she takes 4 units of Humalog with a high carb or sugar snack. She started weekly Trulicity 1.5mg right after her last endo nurse visit at the end of February and is tolerating well. She continues to take Metformin 750mg twice daily. Reviewed CGM download and her average target range is 70-180mg/d l for 78% of the time with two episodes of hypoglycem ia that she reports feeling weak in the legs and nauseaus. One occurred in the evening after a low carb dinner with 18 units of Humalog and the other was in the late afternoon that she had a small lunch with no afternoon snack. She drinks juice, eats a snack and watches to make sure the bg is rising. Advise if she ever sees the cgm go below 80mg/dl and she is not having symptoms to check her bg with her glucometer . She voices understand ing. Dr. Bright reviewed CGM download and made following recommenda tions: Continue medication dosings with the additional Humalog scale for dinner bg readings 110 or less low carb 7 units, med carb 9 units, high carb 10 units. As well she is to take 4 units of Humalog when she has a lunch on the go that has high carbs such as fast food.In addition, she should meet with her nutritioni st to learn more about carb portions so that she may better determine dosing of Humalog. Pt has appointmen t on April 26 with nutritioni Liyah Jose. She agrees with plan and will return to see an endo nurse in one month with a detailed diet and insulin log. Advised to call office if she has low blood sugars. 03/2018: Continuous glucose monitor report reviewed and showed patient images. Options:- Make very serious changes in diet (especiall y dinner) but we discussed reality of her life and circumstan serjio- Push hard to take glipizide at dinner time but prolonged highs suggest it may not be working as well as necessary. - Start short-acti ng insulin at dinner She agrees to this. Start with:Low carb meal: 4 units.Medi um carb meal: 6 unitsHigh carb meal: 8 units. If sugar is over 250 at dinner, give an extra 2 units. Also requesting Rx for depth shoes for her diabetes. Orthotic shoes aren't fitting in regular shoes and she has plantar fasciitis. Review of past:A1c = 8.2 (11/26); was 7.6 (11/25) on 4 meds: metformin/ glipizide/ lantus (75-0-0-[2 5-30]; was 70 am and 30 pm)/victoz a (1.8). Lows when took glipizide with 43 units at night. [id number] rTavis Bright MD Endocrino logy, [address] [address] 05/12/2019 09:25:02 05/13/2019 07:31:25 Uncontrolled type 2 diabetes mellitus 250205248 E11.65 [id number] Travis Bright MD Endocrino logy, [address] [address] 05/26/2019 08:03:33 05/27/2019 14:15:53 [id number] Travis Bright MD Endocrino logy, [facility] [address] [place] [address] 06/16/2019 10:11:21 06/20/2019 07:26:32 Uncontrolled type 2 diabetes mellitus [id number] E11.65 Much improved per CGM (06/28) Abdominal pain 59364309 R10.9 Per HPI: 3x a week she has had stomach cramps followed by diarrhea. It can occur in the middle of the night and as far as she can tell it doesn't have any correlatio n with what she eats (dairy for example). She normally moves her bowels QOD but this occurs outside of her regular bowel movements. She has been on Trulicity since 02/28 and has no problem up until 2 months ago. [id number] Travis Bright MD Endocrino logy, [facility] [address] [place] [address] 10/27/2019 07:36:32 12/26/2019 07:19:53 Uncontrolled type 2 diabetes mellitus [id number] E11.65 a1c= 8.0% (08/28)Incr ease toujeo from 102 up to 110 dailyHumal og around 22-26 at bkfst and 22-26 at dinnerTest at lunch to see impact of bkfst dose. Nurse visit in 2 months for CGM data Hypothyroidism 20854174 E03.9 On 125. tsh= 3.78 (08/28); was 1.22 (02/26); OK in 11/25= 0.98Clinic ally doing well. Follow labs and adjust dose prn. Goal is to have TSH in normal range. Abdominal pain 27319210 R10.9 Per HPI: 3x a week she has had stomach cramps followed by diarrhea. It can occur in the middle of the night and as far as she can tell it doesn't have any correlatio n with what she eats (dairy for example). She normally moves her bowels QOD but this occurs outside of her regular bowel movements. She has been on Trulicity since 02/28 and has no problem up until 2 months ago. Dyslipidem ia due to type 2 diabetes mellitus 7508021320 02 E78.5 169/193 (was 136)/55/75 (08/28)182/ 172/57/91 (direct= 110); Had side effects to statins including Leg cramps on rosuvastat in- even tried fluvastati n but could not tolerate Back on CholestOff Insulin tr eated type 2 diabetes mellitus 079749890 Z79.4 Increases complexity . Obesity 650583031 E66.9 impacts complexity by increase in insulin resistance . [id number] Nae Mccall RN BSN Endocrino logy, [facility] [address] [place] [address] 12/15/2019 11:26:10 12/15/2019 13:56:55 Uncontrolled type 2 diabetes mellitus 807495992 E11.65 a1c= 8.0%Increa se toujeo from 102 up to 110 dailyHumal og around 22-26 at bkfst and 22-26 at dinnerTest at lunch to see impact of bkfst dose. nurse visit in 2 months for CGM data [id number] Travis Bright MD Endocrino logy, [address] [address] 03/30/2020 10:37:36 04/02/2020 07:08:26 Uncontrolled type 2 diabetes mellitus 172380316 E11.65 a1c= 8.8 (04/01); was 8.0% Toujeo = 112 up from 110 daily Humalog around 30's at bkfst (increased in early 2020) but closer to 30-32 (increased in early 2020) Also taking around 10 units since 03/23 and AM still high. Suggest - increase humalog at dinner - stop glipizide (given high doses of insulin, likely not helping) - Look into cost of SGLT2i Increase dinner humalog. Hasn't used scale: Start DINNER scale 120-150: 28 units 151-200: 34 units 201-250: 38 units 251-300: 42 units Find out about cost of Farxiga/Ja rdiance. Hypothyroidism 14327126 E03.9 Recent increase to 137 after TSH was 6's. Was on 125. tsh= 3.78 (08/28); was 1.22 (02/26); OK in 11/25= 0.98 Having more sx with high TSH. Hope to see improvemen t. Follow labs and adjust dose prn. Goal is to have TSH in normal range. Dyslipidem ia due to type 2 diabetes mellitus 8306872906 02 E78.5 169/193 (was 136)/55/75 (08/28)182/ 172/57/91 (direct= 110); Had side effects to statins including Leg cramps on rosuvastat in- even tried fluvastati n but could not tolerate Back on CholestOff Insulin tr eated type 2 diabetes mellitus 364650387 Z79.4 Increases complexity . Obesity 571303250 E66.9 impacts complexity by increase in insulin resistance . [id number] Lyn Hernandez RN, BSN, [facility] DM Education , [address] [address] 04/27/2020 07:31:47 04/27/2020 16:22:48 Uncontrolled type 2 diabetes mellitus 398709927 E11.65 Met with Gwendolyn today via video visit for diabetes education, kindly referred by Dr. Bright - A1c 8.8% in March, up from 8.0% in August 2019 - Current DM meds: - Metformin ER 750 mg 1 tab BID - Lantus 112 units daily in the morning - Humalog SS: 120-150: 28 units 151-200: 34 units 201-250: 38 units 251-300: 42 units - Took 18 units when was 102 at dinner with good effect. - Jardiance was approved by insurance, she has not received yet. Will start taking 10 mg daily. - Now using the Minimally invasive devices Pierre 2, is very happy with it. Reviewed last 2 weeks: - Time in range: 78%; time 180-250 mg/dl: 18%; time above 250 mg/dl: 4%; time below 70 mg/dl: 0% - Avg BG 154 mg/dl - Pattern of highs after dinner and into the overnight hours, however this is not happening every day. Pt reports this is when she snacks on bread or fruit with PB in the evenings. - One low to 68mg/dl in the afternoon after walking. Two overnight hypo events as low as 64 mg/dl after starting new SS, this has not happened in the last 10 days. - Walking more often now that the weather is nice. She always carries hard candies or a juicebox with her in case of lows. Also has Baqsimi if needed. - No changes to insulin today as she will be starting the jardiance. Enc her to contact G via phone or portal with low or highs sugars. [facility]ed[facility] jardiance, eval of BG results, pattern management , when to contact [facility], ID and treatment of hypoglycem ia, effects of physical activity on BG [id number] Lyn Hernandez, RN, BSN, [facility] DM Education , [address] [address] 06/08/2020 07:29:18 06/08/2020 12:35:48 Uncontrolled type 2 diabetes mellitus [id number] E11.65 Met with Gwendolyn today via video visit for diabetes education, kindly referred by Dr. Bright - A1c 8.8% in March, up from 8.0% in August 2019 - Current DM meds: - Metformin ER 750 mg 1 tab BID - Jardiance 10 mg daily - Toujeo 112 units daily in the morning - Humalog SS with breakfast and dinner: 120-150: 28 units 151-200: 34 units 201-250: 38 units 251-300: 42 units - Using the Minimally invasive devices Pierre 2. Reviewed last 4 weeks: - Time in range: 84% (was 78%) Time 180-250 mg/dl: 15% (was 18%) Time above 250 mg/dl: 1% (was 4%) Time below 70 mg/dl: 0% - Avg BG 145 mg/dl - Pt has dipped to 68-75 mg/dl pre-lunch 6 times in the last month. - Fasting BG are 115-150 mg/dl. Pt sometimes snacks at night. Does not take Humalog when snacking. - She always carries hard candies or a juice box with her in case of lows. Also has Baqsimi if needed. - Biking 5 days per week. - We discussed either adding a piece of fruit with breakfast or decreasing morning dose of insulin by 2 units. - Asked her to watch for a correlatio n between night time snacking and fasting BG >130 mg/dl. Will consider taking 5 units of humalog with evening snack if she notices this pattern. Reviewed: eval of BG results, pattern management , when to contact [facility], ID and treatment of hypoglycem ia, effects of physical activity on BG, difference s between CGM and glucometer readings [id number] Lyn Hernandez RN, BSN, [facility] DM Education , [address] [address] 07/27/2020 07:30:13 07/30/2020 14:04:17 Uncontrolled type 2 diabetes mellitus [id number] E11.65 Met with Gwendolyn yanez via video visit for diabetes education, kindly referred by Dr. Bright - A1c 7.7% in June, was 8.8% in March - Current DM meds: - Metformin ER 750 mg 1 tab BID - Jardiance 10 mg daily - Toujeo 112 units daily in the morning - Humalog SS with breakfast and dinner: 120-150: 28 units 151-200: 34 units 201-250: 38 units 251-300: 42 units - Using the Freestyle Pierre 2. Reviewed last 4 weeks: - Time in range: 87% (was 84% 05/30) Time 180-250 mg/dl: 13% (was 15% 05/30) Time above 250 mg/dl: 0% (was 1% 05/30) Time below 70 mg/dl: 0% (was 0% 05/30) - Avg BG 137 mg/dl (was 145 mg/dl 05/30) - Fasting BG are 110-140 mg/dl. Pt sometimes snacks at night. Does not take Humalog when snacking.- Decreased lows before lunch.- She has added a piece of fruit to her morning meal, but feels like she has to eat a snack every few hours during the day so that she does not have a low.- She is struggling to lose weight. Discussed the correlatio n between insulin use, frequent snacking and difficulty with weight loss. - We discussed decreasing her breakfast scale by 4 units, to decrease risk of daytime lows and allow her to decrease snacking during the day.- New breakfast Novolog sliding scale:120- 150: 24 units 151-200: 30 units 201-250: 34 units 251-300: 38 units- Encouraged her to send portal message in 1-2 weeks for DM Ed to review her Freestyle download. Reviewed: eval of BG results, pattern management , insulin titration, insulin use and weight loss [id number] Lyn Hernandez RN, BSN, [facility] DM Education , [address] [address] 09/04/2020 07:31:12 09/04/2020 15:18:29 Uncontrolled type 2 diabetes mellitus [id number] E11.65 Met with Gwendolyn today via video visit for diabetes education, kindly referred by Dr. Bright - A1c 7.7% in June, was 8.8% in March - Current DM meds: - Metformin ER 750 mg 1 tab BID - Jardiance 10 mg daily - Toujeo 112 units daily in the morning - Humalog SS with breakfast and dinner: 120-150: 28 units 151-200: 34 units 201-250: 38 units 251-300: 42 units - Using the Minimally invasive devices Pierre 2. Reviewed last 4 weeks: - Time in range: 80% (was 87% 07/30) Time 180-250 mg/dl: 19% (was 13% 07/30) Time above 250 mg/dl: 1% (was 0% 07/30) Time below 70 mg/dl: 0% (was 0% 07/30) - Avg BG 151 mg/dl (was 137 mg/dl 07/30) - She did not decrease her breakfast dose of insulin as suggested at last appt.- Still takes 28 units with breakfast and has a piece of fruit mid-mornin g to reduce risk of hypoglycem ia.- She has had some health issues and increased stress in the last month. This is why she has not made changes.- Her routines are off, she is not eating at her regular times.- She is snacking in the evenings more often. Has not tried taking Novolog with snacks.- Fasting BG are 130-160 mg/dl.- We again discussed decreasing her breakfast scale by 4 units.- New breakfast Novolog sliding scale:120- 150: 24 units 151-200: 30 units 201-250: 34 units 251-300: 38 units- Also discussed increasing Toujeo by 2 units every 3 days until fasting BG are 80-30 mg/dl.- She is hesitant to make changes today due to her increased stress and health issues, but will consider if her BG do not come back to baseline. Reviewed: eval of BG results, pattern management , insulin titration, insulin use and weight loss [id number] Travis Bright MD Endocrino logy, [facility] [place] [address] [place] [address] 10/09/2020 09:50:51 10/09/2020 12:05:14 Hypothyroidism [id number] E03.9 Increase to 137 after TSH was 6's (04/01). Was on 125. TSH= 0.52 (09/29); was 0.89 (06/29); was 6.05 (04/01); was 3.78 (08/28); was 1.22 (02/26); OK in 11/25= 0.98 Had more sx with high TSH. Hope to see improvemen t. Follow labs and adjust dose prn. Goal is to have TSH in normal range. Mixed hyperlipidemia [id number] E78.2 Cannot tolerate statins- LDL better in 2017 after being put on ezetimibe with continued use of CholestOff (since 07/2015). Recently back on sterol preparatio n (was off after GB surgery). Encourage her to stay on zetia and mostly taking sterol preparatio n (CholestOf f) - was on at time of labs- off x 2 weeks (ran out) Uncontroll ed type 2 diabetes mellitus [id number] E11.65 a1c= 8.3 (09/29); was 7.7 (06/29); was 8.8 (04/01); was 8.0% Toujeo = 112 up from 110 daily Humalog around 30's at [facility] (increased in early 2020) but closer to 30-32 (increased in early 2020) Also taking around 10 units since 04/01 and AM still high. JARDIANCE 10mg.Can't tolerate incretins: Tried Trulicity but had bad severe diarrhea. At lower dose, still had stomach cramps. Victoza- 1.8 (had vomiting). Ozempic was worse still. Suggest - Increase humalog at dinner if more carbohydra leonardo than usual (pasta, bread, potatoes, etc.) - May want to see how she does on higher dose of Jardiance after recovers from yeast infection. Increase dinner humalog. (Hasn't used scale much in past): Start DINNER scale 120-150: 28 units 151-200: 34 units 201-250: 38 units 251-300: 42 units F/U Lyn- if not infections , OK to increase to 25 mg.- Try to get more history about times when BG go up in evening (more CHO at those dinners vs. others)? Vitamin D deficiency [id number] E55.9 46.6 (2016). Essential hypertension [id number] I10 PCP stopped ERIC-I because of low BP (originall y started for high BP). BP is back up here today but she reports normal values at other offices.En courage close f/u- she has access to one - encourage her to check BP at home a few times.If persists, could consider either 12.5 of HCTZ or 2.5 mg lisinopril (was on 5 mg in past). Also may benefit from SGLT2i. 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 Obesity [id number] E66.9 impacts complexity by increase in insulin resistance . Palpitations [id number] R0 0.2 With nausea, weakness and sweating and h/a.Lasted from 2PM till 5PM. Needed help walking out of house.Didn 't feel wiped out afterwards .Went to ER. Check plasma catechols. [id number] Lyn Hernandez RN, BSN, [facility] DM Education , [address] [place] [address] 11/14/2020 07:30:30 11/15/2020 09:27:35 Uncontrolled type 2 diabetes mellitus [id number] E11.65 Met with Gwendolyn today via video visit for diabetes education, kindly referred by Dr. Bright - A1c 8.3% in September, up from 7.7% in June - Current DM meds: - Metformin ER 750 mg 1 tab BID - Jardiance 10 mg daily - Toujeo 112 units daily in the morning - Humalog SS with breakfast and dinner: 120-150: 28 units 151-200: 34 units 201-250: 38 units 251-300: 42 units - Using the Cross[employer]style Pierre 2. Reviewed last 4 weeks: - Time in range: 61% (was 80% 08/29) Time 180-250 mg/dl: 31% (was 19% 08/29) Time above 250 mg/dl: 8% (was 1% 08/29) Time below 70 mg/dl: 0% (was 0% 08/29) - Avg BG 175 mg/dl (was 151 mg/dl 08/29) - A lot of stress, father last month.- Not a normal schedule, eating a lot of pastas and sweets, sometimes did not have insulin with her while at the hospital. Was unable to leave to get it due to covid [place].- Sometimes snacking and not taking Humalog. Used to take 5-7 units of Humalog with snacks.- No physical activity, unusual for her.- Last 2 weeks, starting to get back into regular routine.- Recently had a yeast infection, self treated. It came back, treated by PCP, finished treatment last week. - Continues to snack in the morning so that she does not have a low at lunchtime. Again discussed decreasing her breakfast scale by 4 units.- Breakfast Novolog sliding scale:120- 150: 24 units 151-200: 30 units 201-250: 34 units 251-300: 38 units- She will consider trying.- No other changes today. Will assess for any further infection at next appt, if none, will increase the Jardiance as recommende d by Endocrinol ogy. Reviewed: eval of BG results, pattern management , insulin titration, insulin use and weight loss [id number] Lyn Hernandez, RN, BSN, [facility] DM Education , [address] [address] 12/28/2020 07:30:24 12/31/2020 07:50:17 Uncontrolled type 2 diabetes mellitus [id number] E11.65 Met with Gwendolyn today via video visit for diabetes education, kindly referred by Dr. Bright - A1c 8.3% in September, up from 7.7% in June - Current DM meds: - Metformin ER 750 mg 1 tab BID - Toujeo 112 units daily in the morning - Humalog SS with breakfast and dinner: 120-150: 28 units 151-200: 34 units 201-250: 38 units 251-300: 42 units- Stopped the Jardiance last weekend due to another yeast infection. Has been off it for about 5 days. - Using the Minimally invasive devices Pierre 2. Reviewed last 4 weeks: - Time in range: 69% (was 61% 11/29) Time 180-250 mg/dl: 29% (was 31% 11/29) Time above 250 mg/dl: 2% (was 8% 11/29) Time below 70 mg/dl: 0% (was 0% 11/29) - Avg BG 165 mg/dl (was 175 mg/dl 11/29) - Since stopping the jardiance, pattern noted of BG increasing after lunch, staying high at dinner and persisting over 180 mg/dl into the overnight hours.- Fasting BG are 150-180 mg/dl.- Eats a high carb meals most days for lunch (PB and fluff sandwich with chips and an apple). Suggested taking 1/2 sliding scale dose with lunch (i.e. if BG is 130 at lunchtime, take 14 units Humalog). She is in agreement with trying this.- Will likely need to increase her Toujeo, but will assess for this at next appt.- She is back to a more baseline eating pattern.- Has not yet returned to her usual amount of physical activity. - Pt questions if she should inject 5 units of Humalog with her evening snack. She has done this in the past with good effect on her overnight readings. Advised that she could restart this as long as her evening readings were not too low. Reviewed: eval of BG results, pattern management , insulin titration, diet review [id number] Lyn Hernandez RN, BSN, [facility] DM Education , [address] [address] 01/22/2021 07:31:37 01/28/2021 11:44:55 Uncontrolled type 2 diabetes mellitus [id number] E11.65 Met with Gwendolyn yanez via video visit for diabetes education, kindly referred by Dr. Bright - A1c 8.3% in September, up from 7.7% in June - Current DM meds: - Metformin ER 750 mg 1 tab BID - Toujeo 112 units daily in the morning - Humalog SS with breakfast and dinner, takes 1/2 dose of Humalog with lunch 120-150: 28 units 151-200: 34 units 201-250: 38 units 251-300: 42 units - Using the Minimally invasive devices Pierre 2. Reviewed last 4 weeks: - Time in range: 55% (was 69% 12/30) Time 180-250 mg/dl: 38% (was 29% 12/30) Time above 250 mg/dl: 7% (was 2% 12/30) Time below 70 mg/dl: 0% (was 0% 12/30) - Avg BG 180 mg/dl (was 165 mg/dl 12/30) - BG appear to be the highest after dinner into the overnight hours. This is starting to lessen as she is increasing her physical activity.- Over last 2 weeks, BG are more well controlled with less spikes over 250 mg/dl. Pt states this is due to Thanksgivi ng being over.- One after dinner low BG. This occurred when she exercised after dinner.- Fasting BG are 140-180 mg/dl.- Has restarted physical activity, 3 miles brisk walking 5 times per week.- Stopped taking the lunchtime Novolog due to fear of afternoon low BG.- Occ taking 5 units Novolog with evening snacks. - Recommende d increasing Toujeo by 2 units every 4-5 days until fasting BG is under 130 mg/dl.- Also recommende d decreasing dinnertime Novolog if BG is under 200 mg/dl and planning on exercising after dinner.- Pt states understand ing and agreement with this plan. Reviewed: eval of BG results, pattern management , insulin titration, diet review [id number] Lyn Hernandez RN, BSN, [facility] DM Education , [address] [address] 02/26/2021 07:34:06 02/27/2021 11:27:37 Uncontrolled type 2 diabetes mellitus [id number] E11.65 Met with Gwendolyn yanez via video visit for diabetes education, kindly referred by Dr. Bright - A1c 8.2% in February, was 8.3% in September- She had a URI and asthma exacerbati on in January, had to go on a course of steroids and was not able to be physically active. - Current DM meds: - Metformin ER 750 mg 1 tab BID - Toujeo 120 units daily in the morning. Increased to 120 units 2 weeks ago. - Humalog SS with breakfast and dinner, takes 1/2 dose of Humalog with lunch 120-150: 28 units 151-200: 34 units 201-250: 38 units 251-300: 42 units - Using the Minimally invasive devices Pierre 2. Reviewed last 4 weeks: - Time in range: 52% (was 55% 01/29) Time 180-250 mg/dl: 36% (was 38% 01/29) Time above 250 mg/dl: 12% (was 7% 01/29) Time below 70 mg/dl: 0% (was 0% 01/29) - Avg BG 183 mg/dl (was 180 mg/dl 01/29) - BG were frequently over 200 mg/dl in January due to illness and the steroids.- She is still on a steroid nebulizer. - Last 2 weeks BG have been closer to target; pattern of highest BG noted in the afternoon and evening hours.- Fasting 112-191 mg/dl in the last 2 weeks.- No hypoglycem ia.- Taking lunchtime Novolog most of the time. Also dosing 5-10 units with her evening snack more regularly. - Recommende d continuing to increase the Toujeo by 2 units every 4-5 days until fasting BG is under 130 mg/dl.- No other changes suggested today. Pt states understand ing that she may need to reduce Novolog doses when she is more regularly physically active again to reduce the risk for hypoglycem ia.- Pt states understand ing and agreement with this plan. Reviewed: eval of BG results, pattern management , insulin titration, diet review [id number] Travis Bright MD Endocrino logy, [address] [address] 04/10/2021 15:56:40 04/10/2021 19:39:14 Uncontrolled type 2 diabetes mellitus [id number] E11.65 a1c= 8.2 (03/02); was 8.3 (09/29); was 7.7 (06/29); was 8.8 (04/01); was 8.0 (08/28); was 8.9 (02/28); was 7.9 (08/27); Goal is to have a1c under 7.%. Currently on Toujeo (recent increase to 124 units/d) with Humalog scale (28-34 units) mostly taking at bkfst and dinner but occasional ly at lunch. Unfortjanettt adrian, not able to tolerate incretin and had (yeast) infections on Jardiance Has Pierre which shows highs after dinner and extending overnight. She often has a snack at 10PM and has been told to take 10 units with snack (Jamie ). She admits she takes more than that if over 250 (recently took additional 8 units). Suggest she take 10 units at 10PM if BG is 100-250 and 20 units if BG is over 250.Also suggest she try and be more consistent about using scale at lunch. Hypothyroidism [id number] E03.9 On 137 Euthyrox since TSH was 6's (04/01). Was on 125. TSH= 1.44 (03/02); was 0.52 (09/29); was 0.89 (06/29); was 6.05 (04/01); was 3.78 (08/28); was 1.22 (02/26); OK in 11/25= 0.98Labs at goal and no s/s of excess/ins ufficient thyroid. Follow labs and adjust dose prn. Goal is to have TSH in normal range. Dyslipidem ia due to type 2 diabetes mellitus [id number] 02 E78.5 164/ 116/66/76 (03/01)190- 163-59-98 (09/29)156/ 137/56/73 (04/01);169 /193 (was 136)/55/75 (08/28)182/ 172/57/91 (direct= 110); 04/30: On zetia and CholestOff .Cannot tolerate statins- Had side effects including leg cramps on rosuvastat in- even tried fluvastati n but could not tolerate Essential hypertension [id number] I10 On losartan 25 mg.Of note, she had several CV sx earlier and had plasma catechols checked which were normal.Sin ce starting on low dose ARB, none of those sx have recurred. Previously , PCP stopped ERIC-I because of low BP Would have liked to use SGLT2i to help with BP and BG but she developed infections . Insulin tr eated type 2 diabetes mellitus [id number] Z79.4 Increases complexity .There is a current and ongoing significan t concern for the this patient's risk for severe hypoglycem ia causing serious health consequenc es. Obesity 691546092 E66.9 impacts complexity by increase in insulin resistance . [id number] Lyn Hernandez, RN, BSN, [facility] DM Education , [address] [address] 05/14/2021 07:33:24 05/17/2021 10:27:48 Uncontrolled type 2 diabetes mellitus [id number] E11.65 Met with Gwendolyn yanez via video visit for diabetes education, kindly referred by Dr. Bright - A1c 8.2% in February, was 8.3% in September Current DM meds:- Metformin ER 750 mg BID- Toujeo 124 units daily in the morning- Humalog SS with stxep289-5 50: 28 [id number] 00: 34 [id number] 50: 38 -5 00: 42 units- Humalog with evening snack:100- 250: 15 unitsOver 250: 20 units - Using the [employer] Pierre 2 to monitor her BG continuous ly. Reviewed last 4 weeks:Avg BG 193 mg/dl (was 183 03/02)Time 70-180 mg/dl: 46% (was 52% 03/02)Time 181-250 mg/dl: 40% (was 36% 03/02)Time over 250 mg/dl: 14% (was 12% 03/02)Time below 70 mg/dl: 0% (was 0% 03/02)- This download includes one week of vacation and a cortisone injection, both affecting her BG control. - Endo rec to take Humalog regularly with lunch and evening snacks. She does not always take at lunch and with evening snacking, but is trying to be more consistent .- No longer spiking as high in the evening, however her fasting BG are consistent ly over 150 mg/dl.- Recommende d increasing the Toujeo to 128 units daily. - She is also still working towards increasing her physical activity.- Pt states understand ing that she may need to reduce Novolog doses when she is more regularly physically active again to reduce the risk for hypoglycem ia. Reviewed: eval of BG results, pattern management , insulin titration, diet review [id number] Lyn Hernandez RN, BSN, [facility] DM Education , [address] [address] 07/23/2021 07:30:50 07/24/2021 12:53:59 Uncontrolled type 2 diabetes mellitus [id number] E11.65 Met with Gwendolyn today via video visit for diabetes education, kindly referred by Dr. Bright- A1c 8.2% in February, was 8.3% in September Current DM meds:- Metformin ER 750 mg BID- Toujeo 124 units daily in the morning. Did not increase to 128 units as suggested at last appt.- Humalog SS three times daily with meals:120- 150: 28 [id number] 00: 34 -9 50: 38 [id number] 00: 42 units- Humalog with evening snack:100- 250: 15 unitsOver 250: 20 units - Using the Minimally invasive devices Pierre 2 to monitor her BG continuous ly. Reviewed last 4 weeks:Avg BG 176 mg/dl (was 193 05/31)Time 70-180 mg/dl: 59% (was 46% 05/31)Time 181-250 mg/dl: 33% (was 40% 05/31)Time over 250 mg/dl: 8% (was 14% 05/31)Time below 70 mg/dl: 0% (was 0% 05/31)- Main pattern noted is high BG after dinner into the overnight hours. Fasting BG continue to be over 130 mg/dl the majority of days. - Pt notes that on days that she exercises she has an extra snack in the evening to reduce risk of overnight low BG. This sometimes spikes her BG overnight. She often does not remember to take Humalog with her evening snacks.- Recommende d reducing dinnertime Humalog when she is going to exercise.- BG were elevated over 200 mg/dl for 2 days after cortisone injection in her finger.- She will be having hand surgery with 2 knuckles replaced on 10/01, will also be getting a colonoscop y during this time. - Reviewed target ranges for fasting or before a meal (80-130 mg/dl) and 2 hours after meals (less than 180 mg/dl).- Recommende d increasing the Toujeo to 128 units daily if fasting BG continue to be over 130 mg/dl after reducing evening snacks/gama ing insulin with snacks. - Pt requests new Humalog rx to show she is taking the Humalog TID with meals, and requests 90 day supply. Updated and sent to pharmacy.Xiomara fair: eval of BG results, pattern management , insulin titration, diet review [id number] Lyn Hernandez RN, BSN, [facility] DM Education , [address] [address] 09/10/2021 07:30:59 09/13/2021 08:07:07 Uncontrolled type 2 diabetes mellitus [id number] E11.65 Met with Gwendolyn today via video visit for diabetes education, kindly referred by Dr. Bright- She will be having hand surgery with 2 knuckles replaced on 10/01. Will be out of work for 6 weeks.- A1c 8.2% in February, was 8.3% in September Current DM meds:- Metformin ER 750 mg BID- Toujeo 128 units daily in the morning- Humalog SS three times daily with meals:120- 150: 28 [id number] 00: 34 deskp798-7 50: 38 [id number] 00: 42 units- Humalog with evening snack:100- 250: 15 unitsOver 250: 20 units - Using the Freestyle Pierre 2 to monitor her BG continuous ly. Reviewed last 4 weeks:Avg BG 181 mg/dl (was 176 07/31)Time 70-180 mg/dl: 55% (was 59% 07/31)Time 181-250 mg/dl: 37% (was 33% 07/31)Time over 250 mg/dl: 8% (was 8% 07/31)Time below 70 mg/dl: 0% (was 0% 07/31) - Usual pattern noted: higher BG after dinner into the overnight hours. Fasting BG continue to be over 130 mg/dl the majority of days.- Forgetting Humalog doses, usually at lunch.- Notes that she has not exercised in the last month. Had intended to increase exercise. She has used exercise as a way to successful ly reduce BG in the past. Barriers include the hot weather, changing work schedule, coordinati ng needed appointmen ts for upcoming surgery.- Encouraged her to walk 15 minutes after dinner.- Plans to walk more during the 6 weeks she is out after her surgery. - Recommende d increasing the Toujeo to 132 units daily. She is in agreement with this. Reviewed: eval of BG results, pattern management , insulin titration, diet review, effects of surgery on BG [id number] Travis Bright MD Endocrino logy, [address] [address] 10/16/2021 16:51:51 10/22/2021 13:47:21 Uncontrolled type 2 diabetes mellitus [id number] E11.65 a1c= 8.3 (09/30); was 8.2 (03/02); was 8.3 (09/29); was 7.7 (06/29); was 8.8 (04/01); was 8.0 (08/28); was 8.9 (02/28); was 7.9 (08/27); Goal is to have a1c under 7.0%. Unfortunajulia campbell, not able to tolerate incretin and had (yeast) infections on Jardiance Currently on Toujeo (recent increase to 132 units/d) with Humalog scale (28-34 units) with additional scale for HS snack. She has been better about taking short-acti ng when she has HS snack.- 10 units at 10PM if BG is 100-250 and 20 units if BG is over 250. 10/31: Pierre shows over 75% of time in target zone. This continues to improve over course of last several months. Hope to see improvemen t in A1c. If not, could try adding DPP4i but that class doesn't usually decrease a1c by more than 0.5%. Hypothyroidism 05070915 E03.9 On 137 levothyrox ine since TSH was 6's (04/01). Was on 125. TSH= 1.06 (09/30); was 1.44 (03/02); was 0.52 (09/29); was 0.89 (06/29); was 6.05 (04/01); was 3.78 (08/28); was 1.22 (02/26); OK in 11/25= 0.98Labs at goal and no s/s of excess/ins ufficient thyroid. Follow labs and adjust dose prn. Goal is to have TSH in normal range. Dyslipidem ia due to type 2 diabetes mellitus [id number] 02 E78.5 159-124-65 -69 (09/30);164 / 116/66/76 (03/01)190- 163-59-98 (09/29)156/ 137/56/73 (04/01);169 /193 (was 136)/55/75 (08/28)182/ 172/57/91 (direct= 110); On zetia and CholestOff .Cannot tolerate statins- Had side effects including leg cramps on rosuvastat in- even tried fluvastati n but could not tolerate Continue current meds- levels are at target. Essential hypertension [id number] I10 On losartan 25 mg.Of note, she had several CV sx earlier and had plasma catechols checked which were normal.Sin ce starting on low dose ARB, none of those sx have recurred. Previously , PCP stopped ERIC-I because of low BP Would have liked to use SGLT2i to help with BP and BG but she developed infections . Insulin tr eated type 2 diabetes mellitus [id number] Z79.4 Increases complexity .There is a current and ongoing significan t concern for the this patient's risk for severe hypoglycem ia causing serious health consequenc es. Obesity 840007004 E66.9 impacts complexity by increase in insulin resistance . [id number] Lyn Hernandez RN, BSN, [facility] DM Education , [address] [address] 11/26/2021 07:31:44 11/29/2021 13:19:36 Uncontrolled type 2 diabetes mellitus [id number] E11.65 Met with Gwendolyn today via video visit for diabetes education, kindly referred by Dr. Bright- She had hand surgery with 2 knuckles replaced on 10/01. Out of work until at least until the end of December.- A1c 8.3% in September, was 8.2% in February Current DM meds:- Metformin ER 750 mg BID- Toujeo 132 units daily in the morning- Humalog SS three times daily with meals:120- 150: 28 soxzj094-6 00: 34 -1 50: 38 -1 00: 42 units- Humalog scale with evening snack:100- 250: 10 unitsOver 250: 20 units- Sometimes missing lunchtime doses of her medication s. - Using the CrossTxstyle Pierre 2 to monitor her BG continuous ly. Reviewed last 4 weeks:Avg B mg/dl (was 181 mg/dl 09/30) (was 176 07/31)Time 70-180 mg/dl: 51% (was 55% 09/30) (was 59% 07/31)Time 181-250 mg/dl: 40% (was 37% 09/30) (was 33% 07/31)Time over 250 mg/dl: 8% (was 8% 09/30) (was 8% 07/31)Time below 70 mg/dl: 1% (was 0% 09/30) (was 0% 07/31) - BG were more well controlled , with avg BG in the 150's at Endo appt last month.- One low BG episode, into the 60's, occurred overnight. Pt is unsure what caused it.- More stress, forgetting Humalog doses and not being in a routine are contributi ng to worsening BG control.- Slowly getting use of her hand back d/t knuckle replacemen t surgery.- Has not been able to increase physical activity due to the surgery. - No changes suggested today. Plan is to refocus on routine and consistenc y with meal times, portion sizes and insulin administra tion. [id number] Lyn Hernandez RN, BSN, [facility] DM Education , [address] [address] 01/28/2022 07:31:53 02/04/2022 12:53:52 Uncontrolled type 2 diabetes mellitus [id number] E11.65 Met with Gwendolyn today via video visit for diabetes education, kindly referred by Dr. Bright- She had hand surgery with 2 knuckles replaced on 10/01.- Has been back at work for 2 weeks. Still has pain in her fingers.- On ABT for 3 months for an infection in armpit.- A1c 8.3% in September, was 8.2% in February Current DM meds:- Metformin ER 750 mg BID- Toujeo 132 units daily in the morning- Humalog SS three times daily with meals:120- 150: 28 [id number] 00: 34 hauio692-2 50: 38 tikoc716-9 00: 42 units- Humalog scale with evening snack:100- 250: 10 unitsOver 250: 20 units- Sometimes missing lunchtime doses of her medication s. - Using the CrossTxstyle Pierre 2 to monitor her BG continuous ly. Reviewed last 4 weeks:Avg B mg/dl (was 180 mg/dl 11/30)Time 70-180 mg/dl: 41% (was 51% 11/30)Time 181-250 mg/dl: 46% (was 40% 11/30)Time over 250 mg/dl: 13% (was 8% 11/30)Time below 70 mg/dl: 0% (was 1% 11/30)- No hypoglycem ia noted.- BG highest after lunch and into the evening/ov ernight hours.- States she is getting into a routine again, after being back at work for 2 weeks.- Was forgetting to take insulin and not eating at regular times when at home. Now taking Humalog more regularly. - Sometimes logging in meals and Humalog doses.- Noted some recent lunches where she is having some candy or peppermint bark. BG seems to persist >180mg/dl 2 hours after meals on these occasions. - Has not been able to increase physical activity, which has helps with DM management in the past. - Pt requests updated lab orders sent to [facility], states she tried to get labs and the orders were . Also requests hard copy of labs mailed to her. Pt case sent to Endo staff. Recommende d today:- Limit desserts and/or add 5 units Humalog when she is going to have a dessert.- Continue to log meals and Humalog doses as regularly as possible, as this helps greatly with pattern management .- Consider restarting physical activity as tolerated. - Pt states understand ing and agreement with this plan. [id number] Travis Bright MD Endocrino logy, [address] [address] 04/16/2022 16:53:02 05/19/2022 08:09:59 Uncontrolled type 2 diabetes mellitus [id number] E11.65 UNCONTROLL ED.a1c= 8.7 (05/01); was 9.1 (01/30) was 8.3 (09/30); was 8.2 (03/02); was 8.3 (09/29); was 7.7 (06/29); was 8.8 (04/01); was 8.0 (08/28); was 8.9 (02/28); was 7.9 (08/27); Goal is to have a1c under 7.0%. Unfortunat adrian, not able to tolerate incretin and had (yeast) infections on Jardiance Currently on Toujeo (132 units/d) with Humalog scale (28-34 units) with additional scale for HS snack. 05/01: Unfortunat e deteriorat ion in control based on most recent CGM despite better a1c.- Increase dinner scale. Plan on dinner short-acti ng closer to 40-50 units.- Increase Toujeo 132 -> 150 units. Hypothyroidism [id number] E03.9 On 137 levothyrox ine since TSH was 6's (04/01). Was on 125. TSH= 1.59 (05/01) was 2.52 (01/30) was 1.06 (09/30); was 1.44 (03/02); was 0.52 (09/29); was 0.89 (06/29); was 6.05 (04/01); was 3.78 (08/28); was 1.22 (02/26); OK in 11/25= 0.98Labs at goal and no s/s of excess/ins ufficient thyroid. Follow labs and adjust dose prn. Goal is to have TSH in normal range. Dyslipidem ia due to type 2 diabetes mellitus [id number] 02 E78.5 166/148/66 /70 (05/01)159- 124-65-69 (09/30);164 / 116/66/76 (03/01)190- 163-59-98 (09/29)156/ 137/56/73 (04/01);169 /193 (was 136)/55/75 (08/28)182/ 172/57/91 (direct= 110); On zetia and CholestOff .Cannot tolerate statins- Had side effects including leg cramps on rosuvastat in- even tried fluvastati n but could not tolerate Continue current meds- levels are at target. Essential hypertension 34745113 I10 On losartan 25 mg.Of note, she had several CV sx earlier and had plasma catechols checked which were normal.Sin ce starting on low dose ARB, none of those sx have recurred. Previously , PCP stopped ERIC-I because of low BP Would have liked to use SGLT2i to help with BP and BG but she developed infections . Insulin tr eated type 2 diabetes mellitus [id number] Z79.4 Increases complexity .There is a current and ongoing significan t concern for the this patient's risk for severe hypoglycem ia causing serious health consequenc es. Obesity 823901122 E66.9 impacts complexity by increase in insulin resistance . [id number] Lyn Hernandez RN, BSN, [facility] DM Education , [address] [address] 05/27/2022 07:31:34 05/28/2022 15:52:14 Uncontrolled type 2 diabetes mellitus [id number] E11.65 Met with Gwendolyn today via video visit for diabetes education, kindly referred by Dr. Bright- A1c 8.7% in April, down from 9.1% in January Current DM meds:- Metformin ER 750 mg BID- Toujeo 150 units daily in the morning- Humalog scale with breakfast and lunch:unde r 120: 18 nvroi496-7 50: 28 ebzwe863-9 00: 34 vuhjc349-2 50: 38 jalbw919-6 00: 42 unitsHumal og dinner dose (added 2 units today):120 -150: 34 -2 00: 40 -7 50: 44 wixtx443-0 00: 48 units- Humalog scale with evening snack:100- 250: 10 unitsOver 250: 20-25 units- She is taking the Humalog consistent ly with all meals. Does not always log lunchtime doses into the Pierre kyle. - Using the Minimally invasive devices Pierre 2 to monitor her BG continuous ly. Reviewed last 4 weeks:Avg B mg/dl (was 194 mg/dl 01/30)Time 70-180 mg/dl: 45% (was 41% 01/30)Time 181-250 mg/dl: 49% (was 46% 01/30)Time over 250 mg/dl: 6% (was 13% 01/30)Time below 70 mg/dl: 0% (was 0% 01/30)- Avg line shows BG spikes after dinner, often persisting overnight. - She often eats an evening snack, but does not take the Humalog until she notices her BG spike.- Often eats an afternoon snacks around 3:30pm. Does not take Humalog with this snack. Pt states she takes this to avoid pre-dinner lows. Could consider either reducing lunch dose of Humalog vs. different afternoon snack. - She has not been able to increase physical activity due to her hectic work schedule. Suggested: - Taking snack dose of Humalog at the time of the snack- Increasing dinnertime scale by 2 units [id number] Lyn Hernandez RN, BSN, [facility] DM Education , [address] [address] 08/19/2022 07:30:49 08/20/2022 13:47:28 Uncontrolled type 2 diabetes mellitus [id number] E11.65 Met with Gwendolyn today via video visit for diabetes education, kindly referred by Dr. Bright- A1c 8.7% in April, down from 9.1% in January Current DM meds:- Metformin ER 750 mg BID- Toujeo 150 units daily in the morning- Humalog scale with breakfast and lunch (increased by 4 units today):und er 120: 18 -2 50: 28 -7 00: 34 -9 50: 38 qjiuk967-1 00: 42 unitsHumal og dinner dose (increased by 4 units today):120 -150: 36 wyocg782-2 00: 42 oytxy200-1 50: 46 ebzsu177-6 00: 50 units- Humalog scale with evening snack:100- 250: 10 unitsOver 250: 20-25 units- Denies missing doses of either insulin. - Using the Freestyle Pierre 3 to monitor her BG continuous ly. Reviewed last 14 days:Avg B mg/dl (was 185 mg/dl 06/01)Time 70-180 mg/dl: 32% (was 45% 06/01)Time 181-250 mg/dl: 39% (was 49% 06/01)Time over 250 mg/dl: 29% (was 6% 06/01)Time below 70 mg/dl: 0% (was 0% 06/01)- Avg line shows BG around 180 mg/dl 12pm-6pm, rise to 250 mg/dl by 11pm, then slowly falls back to 180 mg/dl by 12pm the next day. - Reviewed daily routine. Denies missing insulin doses. More takeout, less meals at home, often eating late which is bumping up overnight sugars. Meal planning will not work for her, as she gets home late and there is nobody available to help with the cooking.- Pt reports that she is not able to make changes to her diet or increase physical activity, as she is very busy with work and her home life.- Trying to get on an earlier work shift so she can get home earlier. Suggested: - Increasing breakfast/ lunch and dinner sliding scales by 4 units- After 5 days of the increased Humalog, increase Toujeo to 160 units if fasting BG continue to consistent ly be over 150 mg/dl - Pt wrote down and read back these changes, states understand ing and agreement with this plan.- Encouraged her to make small better-for -you changes to her lifestyle as she is able - Appears she has increased insulin resistance . May want to consider switching to Humulin R U-500. [id number] Travis Bright MD Endocrino logy, [address] [address] 11/26/2022 16:21:57 11/28/2022 16:25:18 Uncontrolled type 2 diabetes mellitus [id number] E11.65 UNCONTROLL ED.a1c= 8.4 (11/01); was 8.9 (08/31) was 8.7 (05/01); was 9.1 (01/30) was 8.3 (09/30); was 8.2 (03/02); was 8.3 (09/29); was 7.7 (06/29); was 8.8 (04/01); was 8.0 (08/28); was 8.9 (02/28); was 7.9 (08/27); Goal is to have a1c under 7.0%. Unfortunat adrian, not able to tolerate incretin and had (yeast) infections on Jardiance Currently on Toujeo (150 in 12/01); was 132 units/dHum alog scale (30-50 units) with additional scale for HS snack. 05/01: Unfortunat e deteriorat ion in control based on most recent CGM despite better a1c.- Increase dinner scale. Plan on dinner short-acti ng closer to 40-50 units.- Increase Toujeo 132 -> 150 units. 12/01: Highs very often in evening- choices for dinner/sna cks are very high in CHO.Increa se dinner scale by 5 units.11/10 3:GLUCOSE. .......... ..BKFST/BECCA NCH....... .......... ..KHOSVC51 0-150..... .......... ....32.... .......... .......... .......... ....40 -> [address]. .......... ........38 .......... .......... .......... ........46 -> [address]. .......... ........42 .......... .......... .......... ........50 -> [address]. .......... ........46 .......... .......... .......... ........54 -> 59OVER.... .......... .......... .......... .......... .......... .......... .....56 -> 61 PM snacks:100 -250:..... .......... ....19 unitsover 250:...... .......... ...24 units Hypothyroidism [id number] E03.9 On 137 levothyrox ine since TSH was 6's (04/01). Was on 125. TSH= 1.93 (11/01); was 2.14 (08/31) was 1.59 (05/01) was 2.52 (01/30) was 1.06 (09/30); was 1.44 (03/02); was 0.52 (09/29); was 0.89 (06/29); was 6.05 (04/01); was 3.78 (08/28); was 1.22 (02/26); OK in 11/25= 0.98Labs at goal and no s/s of excess/ins ufficient thyroid. Follow labs and adjust dose prn. Goal is to have TSH in normal range. Dyslipidem ia due to type 2 diabetes mellitus [id number] 02 E78.5 08/31: 162/120/60 /7805/01: 166/148/66 /7009/30: 159-124-65 -69 ;03/01: 164/ 116/66/76 /: 190-163-59 -9804/01; 156/137/56 /73;08/28: 169/193 (was 136)/55/75 (08/28)182/ 172/57/91 (direct= 110); On zetia and CholestOff .Cannot tolerate statins- Had side effects including leg cramps on rosuvastat in- even tried fluvastati n but could not tolerate Continue current meds- levels are at target. Essential hypertension [id number] I10 On losartan 25 mg.Of note, she had several CV sx earlier and had plasma catechols checked which were normal.Sin ce starting on low dose ARB, none of those sx have recurred. Previously , PCP stopped ERIC-I because of low BP Would have liked to use SGLT2i to help with BP and BG but she developed infections . Insulin tr eated type 2 diabetes mellitus [id number] Z79.4 Increases complexity .There is a current and ongoing significan t concern for the this patient's risk for severe hypoglycem ia causing serious health consequenc es. Obesity 891161431 E66.9 impacts complexity by increase in insulin resistance . [id number] Travis Bright MD Endocrino log, [address] [address] 06/03/2023 16:49:03 08/03/2023 13:28:08 Uncontrolled type 2 diabetes mellitus [id number] E11.65 UNCONTROLL ED.a1c= 8.4 (11/01); was 8.9 (08/31) was 8.7 (05/01); was 9.1 (01/30) was 8.3 (09/30); was 8.2 (03/02); was 8.3 (09/29); was 7.7 (06/29); was 8.8 (04/01); was 8.0 (08/28); was 8.9 (02/28); was 7.9 (08/27); Goal is to have a1c under 7.0%. Unfortunat adrian, not able to tolerate incretin and had (yeast) infections on Jardiance Currently on Toujeo (150 in 12/01); was 132 units/dHum alog scale (30-50 units) with additional scale for HS snack. 05/01: Unfortunat e deteriorat ion in control based on most recent CGM despite better a1c.- Increase dinner scale. Plan on dinner short-acti ng closer to 40-50 units.- Increase Toujeo 132 -> 150 units. 12/01: Highs very often in evening- choices for dinner/sna cks are very high in CHO.Increa se dinner scale by 5 units.11/10 3:GLUCOSE. .......... ..BKFST/BECCA NCH....... .......... ..GHZJUF01 0-150..... .......... ....32.... .......... .......... .......... ....40 -> [address]. .......... ........38 .......... .......... .......... ........46 -> [address]69-143. .......... ........42 .......... .......... .......... ........50 -> [address]-404. .......... ........46 .......... .......... .......... ........54 -> 59OVER.... .......... .......... .......... .......... .......... .......... .....56 -> 61 PM snacks:100 -250:..... .......... ....19 unitsover 250:...... .......... ...24 units 06/02:PLAN- less starch in PM- if BG over 250 in evening after a week, increase dinner scale by 5 units. Hypothyroidism [id number] E03.9 On 137 levothyrox ine since TSH was 6's (04/01). Was on 125. TSH= 3.34 (06/02) was 1.93 (11/01); was 2.14 (08/31) was 1.59 (05/01) was 2.52 (01/30) was 1.06 (09/30); was 1.44 (03/02); was 0.52 (09/29); was 0.89 (06/29); was 6.05 (04/01); was 3.78 (08/28); was 1.22 (02/26); OK in 11/25= 0.98Labs at goal and no s/s of excess/ins ufficient thyroid. Follow labs and adjust dose prn. Goal is to have TSH in normal range. Dyslipidem ia due to type 2 diabetes mellitus [id number] 02 E78.5 06/02: 163/130/58 /8208/31: 162/120/60 /7805/01: 166/148/66 /7009/30: 159-124-65 -69 ;03/01: 164/ 116/66/76: 190-163-59 -9804/01; 156/137/56 /73;08/28: 169/193 (was 136)/55/75 (08/28)182/ 172/57/91 (direct= 110); On zetia and CholestOff .Cannot tolerate statins- Had side effects including leg cramps on rosuvastat in- even tried fluvastati n but could not tolerate Continue current meds- levels are at target. Essential hypertension [id number] I10 On losartan 25 mg.Of note, she had several CV sx earlier and had plasma catechols checked which were normal.Sin ce starting on low dose ARB, none of those sx have recurred. Previously , PCP stopped ERIC-I because of low BP Would have liked to use SGLT2i to help with BP and BG but she developed infections . Insulin tr eated type 2 diabetes mellitus [id number] Z79.4 Increases complexity .There is a current and ongoing significan t concern for the this patient's risk for severe hypoglycem ia causing serious health consequenc es. Obesity 133333054 E66.9 impacts complexity by increase in insulin resistance . [id number] Travis Bright MD Endocrino logy, [address] [address] 01/20/2024 17:16:14 01/21/2024 11:21:47 Uncontrolled type 2 diabetes mellitus 122419910 E11.65 UNCONTROLL ED.a1c= 10.1 (02/01); was 10.2 (11/02) was 8.4 (11/01); was 8.9 (08/31) was 8.7 (05/01); was 9.1 (01/30) was 8.3 (09/30); was 8.2 (03/02); was 8.3 (09/29); was 7.7 (06/29); was 8.8 (04/01); was 8.0 (08/28); was 8.9 (02/28); was 7.9 (08/27); Goal is to have a1c under 7.0%. Phi campbell, not able to tolerate incretin and had (yeast) infections on Jardiance Currently on Toujeo (150 since 12/01); was 132 units/dHum alog scale (30-50 units) with additional scale for HS snack. 12/01:GLUC OSE....... ......BKFS T/LUNCH... .......... ......DINN [id number]. .......... ........32 .......... .......... .......... ........40 -> [address]. .......... ........38 .......... .......... .......... ........46 -> [address]. .......... ........42 .......... .......... .......... ........50 -> [address]. .......... ........46 .......... .......... .......... ........54 -> 59OVER.... .......... .......... .......... .......... .......... .......... .....56 -> : see below- increase dinner scale by 10 PM snacks:100 -250:..... .......... ....19 unitsover 250:...... .......... ...24 units 02/01: Add 10 units to dinner scale. If BG not better after 2 weeks, increase by another 5 units. Hypothyroidism 24593324 E03.9 On 150 levothyrox ine since TSH was 6's (04/01). Was on 125. TSH= 2.44 (02/01); was 4.92 (11/02); was 3.34 (06/02) was 1.93 (11/01); was 2.14 (08/31) was 1.59 (05/01) was 2.52 (01/30) was 1.06 (09/30); was 1.44 (03/02); was 0.52 (09/29); was 0.89 (06/29); was 6.05 (04/01); was 3.78 (08/28); was 1.22 (02/26); OK in 11/25= 0.98Labs at goal and no s/s of excess/ins ufficient thyroid. Follow labs and adjust dose prn. Goal is to have TSH in normal range. Dyslipidem ia due to type 2 diabetes mellitus [id number] 02 E78.5 02/01: 174/174/58 /86 (fasting); 06/02: 163/130/58 /8208/31: 162/120/60 /7805/01: 166/148/66 /: 159-124-65 -69 ;03/01: 164/ 116/66/: 190-163-59 -9804/01; 156/137/56 /73;08/28: 169/193 (was 136)/55/75 (08/28)182/ 172/57/91 (direct= 110); On zetia and CholestOff .Cannot tolerate statins- Had side effects including leg cramps on rosuvastat in- even tried fluvastati n but could not tolerate Continue current meds- levels are at target. Essential hypertension 02024037 I10 On losartan 25 mg.Of note, she had several CV sx earlier and had plasma catechols checked which were normal.Sin ce starting on low dose ARB, none of those sx have recurred. Previously , PCP stopped ERIC-I because of low BP Would have liked to use SGLT2i to help with BP and BG but she developed infections . Insulin tr eated type 2 diabetes mellitus 242878453 Z79.4 Increases complexity .There is a current and ongoing significan t concern for the this patient's risk for severe hypoglycem ia causing serious health consequenc es. Obesity 873620686 E66.9 impacts complexity by increase in insulin resistance . Health Concerns Section Related Observation LastModified by Organization Detai ls LastModified Time None Recorded Concern Status LastModified by Organization Details LastModified Time None Recorded Advance Directives Directive None Recorded Payers Encounter Date Sequence Insurance Name Policy Number Policy Fair Covered Member ID Fair Member ID Guarantor Name 05/27/2022 1 [facility] [id number] Gwendolyn A David [id number] Gwendolyn Hernandez 08/19/2022 1 [facility] [id number] Gwendolyn A David [id number] Gwendolyn Hernandez 11/26/2022 1 [facility] [id number] Gwendolyn A Hernandez [id number] Gwendolynraj Hernandez 06/03/2023 2 [facility] [id number] Gwendolyn A A Hernandez [id number] Gwendolyn A David 01/20/2024 2 [facility] [id number] Gwendolyn A A Hernandez [id number] Gwendolyn Hernandez Notes Date Note Type Note Provider Name and Address Organization Details Recorded Time 3 text/html DSME Evaluation, Plan and GoalsReported bypatient.DSME Goal #1Medications (Humalog scale for snack: 100-250: 15 units over 250: 20 units); Goal Success 50% Half the Time DSME Goal #2Medications (add 5 units of Humalog when having dessert); Goal Success Initiated Plan Initiated:Date initiated (04/27/20) DSME Plan Status:In process Diabetes Ed Classespatient not appropriate (cannot attend due to work schedule)Diabetes Self Management History & Intake 2Reported bypatient.Patient HistoryPatient chief complaint today:Elevated blood sugars; has a family history of diabetes (grandmother, mother, father and sister); has seen DM Educator in past ; currently seeing Dietitian Associated Symptoms:no polyuria; no polydypsia Hypoglycemia Symptomshypoglycemic reactions: average of 1 times per week, self treated; hypoglycemia unawareness; She does not feel hypo sx when in the 60's like she used to. Home Glucose Monitoring:monitoring glucose (continuously with Freestyle Pierre) Continuous Glucose MonitoringType Freestyle Pierre; Sensor Download Attached Physical Activity3 miles brisk walking 5-7 times per week Nutrtition/dietaryDietary recall follows- typical day (B: 2 eggs, 2 toast Snack 11am: fruit L 12:30pm: apple and PB fluff sandwich, sometimes with chips Snack 4:15pm: apple or 1/2 banana D: meat, potato and a starch; chicken pot pie with biscuits Snack 8-9pm: fruit); Tried not snacking in the morning, but found that she was ravenous at lunchtime, so went back to having a snack between breakfast and lunch. Diagnosed with diabetes around the year 2009Currently working with autistic childrenLives with other peopleUp to date on eye and dental exams- She had hand surgery with 2 knuckles replaced on 10/01. She has calcium build-up in the joints, limiting her ROM. Lyn Hernandez, RN, BSN, [address], [address], [facility] [place] 05/27/2022 13:13:14 3 text/html DSME Evaluation, Plan and GoalsReported bypatient.DSME Goal #1Medications (adjust insulin as noted in A/P); Goal Success Initiated Plan Initiated:Date initiated (04/27/20) DSME Plan Status:In process Diabetes Ed Classespatient not appropriate (cannot attend due to work schedule)Diabetes Self Management History & Intake 2Reported bypatient.Patient HistoryPatient chief complaint today:Elevated blood sugars; has a family history of diabetes (grandmother, mother, father and sister); currently seeing Dietitian Recent Lab Tests:See Flow Sheet/Chart for current lab values. Associated Symptoms:no polyuria; no polydypsia Hypoglycemia SymptomsNo hypoglycemia reported.; She does not feel hypo sx when in the 60's like she used to. Home Glucose Monitoring:monitoring glucose (continuously with Freestyle Pierre) Continuous Glucose MonitoringType Freestyle Pierre; Sensor Download Attached Physical ActivityNot currently physically active Nutrtition/dietaryDietary recall follows- typical day (B: 2 eggs, 2 toast Snack 11am: fruit L 12:30pm: apple and PB fluff sandwich, sometimes with chips Snack 4:15pm: apple or 1/2 banana D: meat, potato and a starch; chicken pot pie with biscuits Snack 8-9pm: fruit); Tried not snacking in the morning, but found that she was ravenous at lunchtime, so went back to having a snack between breakfast and lunch. Diagnosed with diabetes around the year 2009Currently working with autistic childrenLives with other peopleUp to date on eye and dental examsShe had hand surgery with 2 knuckles replaced on 10/01. She has calcium build-up in the joints, limiting her ROM. Lyn Hernandez RN, BSN, [address], [phone], [facility] 08/19/2022 15:52:24 3 text/html DiabetesReported bypatient.Labs:last Hemoglobin A1C: 7-8 (8.4 (11/01); was 8.9 (08/31) was 8.7 (05/01); was 9.1 (01/30) was 8.3 (09/30); was 8.2 (03/02); was 8.3 (09/29); was 7.7 (06/29); was 8.8 (04/01); was 8.0 (08/28); was 8.9 (02/28); was 7.9 (08/27); was 9.5;); microalbumin/creatinine ratio: normal (OK in 08/31 and 05/01 and 09/30; was 8.7 (03/02); was 10.9 (09/29); was <12 (04/01): was ok in 08/28); serum creatinine: 2022 normal; LDL (70 (05/01); was 69 (09/30); was 76 (03/02); was 98 (09/29); was 73 (04/01); was 75 (08/28); was 91 (110 direct in 02/28); was 81 (08/27); was 68 (07/27); was 65 (11/25)_ was 114 (06/25); was 128 (07/25)_ was 129 (02/24)-); Triglycerides at goal (148 (05/01); was 124 (09/30); was 116 (03/02); was 163 (09/29); was 137 (04/01); was 193 (08/28); was 172 (02/28); was 136 (08/27); was 119 (11/26); was 158 (07/27); was Under 150;); HDL decreasing (70 (05/01); was 65 (09/30); was 66 (03/02); was 59 (09/29); was 56 (04/01); was 55 (; was 57 (02/28); was 35 (08/27); was 47 (07/27); generally has been over 40- often higher in past with better exercise habits.) Diabetes Medications:metformin (ER 750 mg BID.); glargine (TOUJEO: 150 AM (12/01); was 132 in AM. (since 10/31); was 124 (04/30); was 112 (AM 04/01); was 102 (AM); was 80-0-0-(25-36); was 80-0-0-(25-30); was 75-0-0-[25-30]; same- 70-0-0-(30); was 65-0-0-20 (recently taking 30). Was taking 10-12 in PM. On 45-47 in AM.); lispro (See below:); OFF JARDIANCE (Had infections) Tried Trulicity but had bad severe diarrhea. At lower dose, still had stomach cramps. Victoza- 1.8 (had vomiting). Ozempic was worse still. Renal/HTN Medications:lisinopril (OFF - was only on 5 mg); losartan (25 mg) Lipid Medications:rosuvastatin (OFF after 5 mg 3-4x per week. Leg cramps. Was started by PCP- 5 mg. told to start at once a week.); fluvastatin (OFF- was on . Recently stopped- unable to tolerate.); Ezetimibe 10 mg since fall 2016. On CholestOff (2 tabs BID since 04/01). Had been off. Review blood sugar:See below. Associated Symptoms:no polyuria (q 3 hours. (if every hour, usually means yeast infection).); no nocturia; no burning or discomfort with urination; no foul odor or discharge; no polydypsia; no blurred vision (occasional.); no weight loss; WEIGHT: 248 (office 12/01); stable was 239 in 2021. Stopped Jardiance after multiple yeast infections- OTC wasn't enough. Now has oral and Rx for vaginal. Less UTIs since had ablation and no more menses. Cardiac / Eye / Podiatric / Renal / Vascular Symptomsno coronary artery disease; no retinopathy (Leo (2022)); no numbness of feet; no kidney disease Hypoglycemia Symptomsfrequency of hypoglycemic episodes (None recently (since 04/30)); Severity of hypoglycemic episodes mild; Dizziness when hypoglycemic; One low 11/01 (10:30AM). BG was 70s; Mostly nausea and weak (extremities like jelly). off balance.Notes:Using scale for Humalog:GLUCOSE............ .BKFST/LUNCH............... ....[id number].......... .........32................ ......................28353 -200...................38.. ........................... .........03602-411......... ..........42............... .......................5025 1-300...................46 ........................... ...........54OVER.......... ........................... ........................... .....56 PM snacks:100-250:............ .......19 unitsover 250:...................24 units Most recent BG: see download HYPERLIPIDEMIA: ezetimibe and cholestoff08/31: 162/120/60/7805/01: 166/148/66/7009/30: 169-242-34-: 164/ 116/66/76 (on on Zetia and Cholestoff)04/01: 156/137/56/73; Back on YbhnmjxPtl30/18: 153/119/47/82; NAFLD:AST/ALT= 43/63 (08/31); was 54/67 (05/01) was 92/107 () was 55/78 (09/30); was 69/79 (03/02); was 48 /59 (09/29); 51/78 (04/01); was 70/76 (08/28); was 39/43; was 158/225; was 24/42 (11/25);Unable to tolerate any incretin. OLD A1C VALUES: was 8.5 (07/25)- was 8.3 (02/24)- was 7.9% (02/23- on steroids)- was 7.6% (10/23)_ was 7.5 (05/23)- was 7.9 (02/22) - was over 9%- as up to 9.2 (02/21)- was 7.8 (08/20); was 8.1 up from 7.9 OLD LDL VALUES: was 8.2 (11/26); was 8.2 (07/27); was 7.5 (02/26); was 7.4 (01/25); was 7.6 (11/25) -was 8.4 (06/25)_ was 8.2 (02/25)- was 103 (02/23)- was 116 (10/23)- was 115 (05/23)- went off fluva 1 week before labs- intolerant to all statins. CGM in past has shown- High values around dinner which persist overnight- this is the major source of high sugars throughout the 24 hour period. PCP is [facility].CARDS: Whit. ([facility]) Follow-Up: type II diabetes mellitus uncontrolledFollow-Up: hypothyroidismDiabetes Type IILV on 05/01Last labs on 11/01 A1C- 8.4Sees DM educator saw on 08/31lab orders in place until 05/02PT uses CGM/pierre 2 added to chart PAST MED HX (updated)Thryoid-gcfsA2JX Jardiance gave her yeast.08/27-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 outside area near knee. Travis Bright MD [address] [place] [address], [place], [address], [facility] 01/20/2024 19:03:16 OBGyn Episode No OBEpisode recorded.
--- OUTSIDE RECORDS SUMMARY | 2024-06-03 10:38 | XMS_ITS | Clinical Summary ---
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 Name Role Phone Cheikh Singh MD Primary Care Provider [phone] Medications No known medications Social History Tobacco Use Types Packs/Day Years Used Date Smoking Tobacco: Never Assessed Sex and Gender Information Value Date Recorded Sex Assigned at Female 03/02/2022 2:40 PM EST Gender Identity Not on file Sexual Orientation Not on file Job Start Date Occupation Industry Not on file Not on file Not on file Last Filed Vital Signs Vital Sign Reading Time Taken Comments Blood Pressure 130/85 03/02/2022 12:10 PM EST Pulse 89 03/02/2022 12:10 PM EST Temperature 36.5 ??C (97.7 ??F) 03/02/2022 12:[address] Respiratory Rate 18 03/02/2022 12:10 PM EST Oxygen Saturation 97% 03/02/2022 12:10 PM EST Inhaled Oxygen Concentration - - Weight - - Height - - Body Mass Index - - Plan of Treatment Health Maintenance Due Date Last Done Comments Hepatitis C Screening 1966 COVID-19 Vaccine (#1) 1966 Depression Screening 1978 Preventative Health Evaluation 1984 DTap / Tdap / Td (1 - Tdap) 1985 Cervical Cancer Screening (Pap Smear) 1987 Colon Cancer Screening (Colonoscopy) 2011 Breast Cancer Screening (Mammogram) 2016 Shingrix-Zoster Vaccine (1 o f 2) 2016 Hepatitis B Vaccines (2 of 3 - Hep B Twinrix 3-dose series) 08/19/2018 07/22/2018 Influenza Vaccine (#1) 2023 0, 12/22/2018, 01/04/2018 Pneumococcal Vaccine Aged Out No long er eligible based on patient's age to complete this topic RSV Ped < 20 months Aged Out No longe r eligible based on patient's age to complete this topic Care Teams Catering Truck Operator Relationship Specialty Start Date End Date Cheikh Singh MD [address] [place] [address] PCP - General Internal Medicine 03/02/22
== END 2024-06-03 10:36 | disposition home or self-care (01) ==
LOC: HO.HPS 10:11
PROVIDERS: PCP Internal Medicine; Visit Provider Hospitalist
DX: G47.33 Obstructive sleep apnea (adult) (pediatric) (principal); Z99.89 Dependence on other enabling machines and devices; G47.10 Hypersomnia, unspecified; G47.30 Sleep apnea, unspecified; J45.20 Mild intermittent asthma, uncomplicated; F51.01 Primary insomnia
CPT/HCPCS: 99214

== ENCOUNTER → 2024-06-03 10:11 | Outpatient (BNVA) | payer OTHER, SELFPAY | PROVIDERS: PCP Internal Medicine; Visit Provider Hospitalist | DX: J45.20 Mild intermittent asthma, uncomplicated (principal); G47.33 Obstructive sleep apnea (adult) (pediatric); G47.10 Hypersomnia, unspecified; F51.01 Primary insomnia; Z99.89 Dependence on other enabling machines and devices | CPT/HCPCS: 99212 ==